=== PATIENT | female | born 1950 | race Two or more races ===

== ENCOUNTER → 2016-12-03 | Outpatient (REF) | payer OTHER, MEDICAID ==
[~2016-12-03] MED LIST: /PANT40TA OR; /PROM25SU IM; /WARF25TA OR; ACET65TA OR; ALBU17IN INH; ALBU83IN INH; ALBUTEROL LIQ; AMIT100TA PO; ATIV1TAB10 PO; CETI5TAB2 OR; COMBVENT INH; EPIP0.3I2 SUBQ; ESTRACE OR; FERR325T OR; FLEXERIL PO; FLON0.054; IMIT6INJ IJ; K-TA10TA2 PO; KLON0.5T OR; LASI20TA OR; LEVO25TA34 PO; LIDO5DIS36 TD; LISI20TA PO; MAXA10TA14 PO; MAXA10TA17 OR; MELO15TA4 PO; METO25TAB PO; OMEP40CA2 PO; OXYC10TA97 OR; PERC5TAB6 PO; PERC5TAB8 OR; POTA20TA2 OR; PROM125TA PO; SING10TA31 OR; SING10TA32 PO; TEMA15CA2 OR; TESS100C PO; TYLE325T5 PO; VALT1TAB PO; VENL100T PO; VICO5TAB OR; VITA500C OR; ZETI10TA2 PO
== END ==
LOC: M SFHCPLAZ 12:11
PROVIDERS: ATTEND Family Medicine
DX: E11.9 Type 2 diabetes mellitus without complications (principal)
CPT/HCPCS: 36415; 82043; 83036; G0463

== ENCOUNTER → 2016-12-17 | Outpatient (CLI) | payer OTHER | END | disposition home or self-care (01) | LOC: M HL 12:40 | PROVIDERS: ATTEND Family Medicine ==

== ENCOUNTER → 2017-01-01 | Outpatient (REF) | payer OTHER, MEDICAID ==
[~2017-01-01] MED LIST changes: +ASPI1TAB PO; +FISH1000 PO; +GABA300C3 PO; +METF750T PO; +PHEN2SUP PO; +RANI15TA PO
[2017-01-01 13:29] LABS: ALBUMIN 3.6 GM/DL (3.2-5.2); ALKALINE PHOSPHATASE 122 U/L (45-117); ALT/SGPT 36 U/L (12-78); ANION GAP 8 MEQ/L (8-16); AST/SGOT 20 U/L (15-37); BILIRUBIN,TOTAL 0.2 MG/DL (0.2-1.0); BLOOD UREA NITROGEN 21 MG/DL (7-18); CALCIUM LEVEL 9.3 MG/DL (8.8-10.2); CARBON DIOXIDE LEVEL 32 MEQ/L (21-32); CHLORIDE LEVEL 102 MEQ/L (98-107); GLOMERULAR FILTRATION RATE > 60.0 (>45); GLUCOSE, FASTING 103 MG/DL (80-110); POTASSIUM SERUM 4.7 MEQ/L (3.5-5.1); SODIUM LEVEL 142 MEQ/L (136-145); TOTAL PROTEIN 6.6 GM/DL (6.4-8.2)
== END ==
LOC: M SFHCPLAZ 11:21
PROVIDERS: ATTEND Nurse Practitioner Family
DX: E11.9 Type 2 diabetes mellitus without complications (principal)
CPT/HCPCS: 80053; G0463

== ENCOUNTER → 2017-01-11 | Outpatient (CLI) | payer OTHER ==
[~2017-01-11] VITALS: Ht 162.6 cm; Wt 98.9 kg
[~2017-01-11] MED LIST changes: +LIDOCAINE 2% INJ 100 MG/5 ML SDV (FOR ANES.) As Ordered ONE; +NS 1,000 ML IV SCH; +PROPOFOL 200 MG/20 ML VIAL As Ordered ONE
--- NOTE | 2017-01-11 10:29 | ROOR ---
Patient Name: Jessica Ponce Procedure Date: 01/11/2017 9:54 AM Date of : 1950 Age: 66 Room: [facility] Gender: Female Note Status: Finalized Procedure: Colonoscopy Indications: High risk colon cancer surveillance: Personal history of colonic polyps, Last colonoscopy: July 2013, Incidental diarrhea noted Providers: Memo SHARMA MD Referring MD: THELMA CARROLL MD Requesting Provider: Medicines: Monitored Anesthesia Care Complications: No immediate complications. Procedure: Pre-Anesthesia Assessment: - The heart rate, respiratory rate, oxygen saturations, blood pressure, adequacy of pulmonary ventilation, and response to care were monitored throughout the procedure. The Colonoscope was introduced through the anus and advanced to the cecum, identified by appendiceal orifice and ileocecal valve. The colonoscopy was performed without difficulty. The patient tolerated the procedure well. The quality of the bowel preparation was good. Findings: The perianal and digital rectal examinations were normal. Internal hemorrhoids were found during retroflexion. The hemorrhoids were medium-sized. Four flat polyps were found in the sigmoid colon. The polyps were 3 to 5 mm in size. These polyps were removed with a cold snare. Resection and retrieval were complete. The ileocecal valve was moderately lipomatous. This was biopsied with a cold forceps for histology. The exam was otherwise without abnormality on direct and retroflexion views. Biopsies for histology were taken with a cold forceps for evaluation of microscopic colitis. Impression: - Internal hemorrhoids. - Four 3 to 5 mm polyps in the sigmoid colon, removed with a cold snare. Resected and retrieved. - Lipomatous ileocecal valve. Biopsied. - The examination was otherwise normal on direct and retroflexion views. - Biopsies were taken with a cold forceps for evaluation of microscopic colitis. Recommendation: - Await pathology results. - Telephone endoscopist for pathology results in 2 weeks. - If the pathology report reveals adenomatous tissue, then repeat the colonoscopy for surveillance in 3 years. - If the pathology report indicates hyperplastic polyp, then repeat colonoscopy for surveillance in 5 years. Memo Sharma MD Memo SHARMA MD 01/11/2017 10:28:43 AM This report has been signed electronically. Number of Addenda: 0 Note Initiated On: 01/11/2017 9:54 AM Estimated Blood Loss: Estimated blood loss: none. Estimated blood loss: none.
[2017-01-11 10:46] VITALS: BP 126/71
== END ==
LOC: M OPP 08:05
PROVIDERS: ATTEND Internal Medicine Gastroenterology
DX: Z12.11 Encounter for screening for malignant neoplasm of colon (principal); Z86.010 Personal history of colon polyps; K64.8 Other hemorrhoids; D12.5 Benign neoplasm of sigmoid colon; K63.89 Other specified diseases of intestine; I10 Essential (primary) hypertension; E11.9 Type 2 diabetes mellitus without complications; K21.9 Gastro-esophageal reflux disease without esophagitis; M19.90 Unspecified osteoarthritis, unspecified site; G43.909 Migraine, unspecified, not intractable, without status migrainosus; R63.4 Abnormal weight loss; M48.00 Spinal stenosis, site unspecified; R00.0 Tachycardia, unspecified; E78.00 Pure hypercholesterolemia, unspecified; F41.9 Anxiety disorder, unspecified; F32.9 Major depressive disorder, single episode, unspecified; G62.9 Polyneuropathy, unspecified; R06.83 Snoring; R32 Unspecified urinary incontinence; Z79.82 Long term (current) use of aspirin; Z79.84 Long term (current) use of oral hypoglycemic drugs; Z79.899 Other long term (current) drug therapy; Z88.5 Allergy status to narcotic agent; Z88.6 Allergy status to analgesic agent; Z88.0 Allergy status to penicillin; Z88.8 Allergy status to other drugs, medicaments and biological substances; Z91.030 Bee allergy status

== ENCOUNTER → 2017-02-06 | Outpatient (REF) | payer OTHER, MEDICAID ==
[~2017-02-06] MED LIST changes: -LIDOCAINE 2% INJ 100 MG/5 ML SDV (FOR ANES.) As Ordered ONE; -NS 1,000 ML IV SCH; -PROPOFOL 200 MG/20 ML VIAL As Ordered ONE
== END ==
LOC: M SFHCPLAZ 13:42
PROVIDERS: ATTEND Nurse Practitioner Family
DX: E11.9 Type 2 diabetes mellitus without complications (principal); E78.2 Mixed hyperlipidemia; Z53.8 Procedure and treatment not carried out for other reasons

== ENCOUNTER → 2017-02-07 | Outpatient (REF) | payer OTHER, MEDICAID ==
[2017-02-07 12:35] LABS: ALBUMIN 3.5 GM/DL (3.2-5.2); ALBUMIN/GLOBULIN RATIO 1.03 (1.00-1.93); ALKALINE PHOSPHATASE 130 U/L (45-117); ALT/SGPT 36 U/L (12-78); ANION GAP 6 MEQ/L (8-16); AST/SGOT 20 U/L (15-37); BILIRUBIN,TOTAL 0.3 MG/DL (0.2-1.0); BLOOD UREA NITROGEN 15 MG/DL (7-18); CALCIUM LEVEL 9.3 MG/DL (8.8-10.2); CARBON DIOXIDE LEVEL 33 MEQ/L (21-32); CHLORIDE LEVEL 101 MEQ/L (98-107); CHOLESTEROL LEVEL 197 MG/DL (<200); CREATININE FOR GFR 0.67 MG/DL (0.55-1.02); GLOMERULAR FILTRATION RATE > 60.0 (>45); GLUCOSE, FASTING 96 MG/DL (80-110); POTASSIUM SERUM 4.4 MEQ/L (3.5-5.1); SODIUM LEVEL 140 MEQ/L (136-145); TOTAL PROTEIN 6.9 GM/DL (6.4-8.2); TRIGLYCERIDES LEVEL 173 MG/DL (<150)
== END ==
LOC: M SFHCPLAZ 10:23
PROVIDERS: ATTEND Nurse Practitioner Family
DX: E11.9 Type 2 diabetes mellitus without complications (principal); E78.2 Mixed hyperlipidemia

== ENCOUNTER 2017-02-25 07:22 | Day surgery (SDC) | payer OTHER, MEDICAID ==
[~2017-02-25] VITALS: Ht 157.5 cm; Wt 95.3 kg
[~2017-02-25 07:22] MED LIST changes: +CALCTAB75 PO; +EPINEPHrine 1MG/ML INJ 30ML MD-VIAL As Ordered ONE; +EPINEPHrine INJ 1 MG/ML 1ML VIAL/AMP As Ordered ONE; +FLON27.5; +GABA-282 PO; -GABA300C3 PO; +METO37.5 PO; +PROC25SU24 PO; +ROBA750T4 PO
[2017-02-25] MEDS ORDERED: LIDOCAINE 1% MDV 20ML VIAL ONE (07:23)
[2017-02-25] MEDS ORDERED: ROPIvacaine 0.5% 30 ML INJECTION (J2795) ONE (07:23)
[2017-02-25] MEDS ORDERED: LR 1,000 ML IV SCH ×2 (07:30→13:15)
[2017-02-25] MEDS ORDERED: VANCOMYCIN HCL 1,000 MG, VIAL MATE ADAPTER 1 EACH in D5W 250 ML IV ONE (07:30)
[2017-02-25] MEDS ORDERED: fentaNYL 100 MCG/2 ML INJECTION (J3010) As Ordered ONE (08:56)
[2017-02-25] MEDS ORDERED: MIDAZOLAM INJ 2 MG/2 ML VIAL (J2250) As Ordered ONE ×2 (08:56→11:48)
[2017-02-25] MEDS ORDERED: MIDAZOLAM INJ 2 MG/2 ML VIAL (J2250) IV ONE (10:00)
[2017-02-25] MEDS ORDERED: fentaNYL 100 MCG/2 ML INJECTION (J3010) IV ONE (10:00)
[2017-02-25] MEDS ORDERED: dexameTHASONE 4 MG/ML 1ML VIAL (J1100) As Ordered ONE (11:15)
[2017-02-25] MEDS ORDERED: LIDOCAINE 2% INJ 100 MG/5 ML SDV (FOR ANES.) As Ordered ONE (11:15)
[2017-02-25] MEDS ORDERED: ROCURONIUM BROMIDE 50 MG/5 ML VIAL As Ordered ONE (11:15)
[2017-02-25] MEDS ORDERED: PROPOFOL 200 MG/20 ML VIAL As Ordered ONE (11:15)
[2017-02-25] MEDS ORDERED: ONDANSETRON 4MG/2ML VIAL (J2405) As Ordered ONE (11:15)
[2017-02-25] MEDS ORDERED: CALCIUM CHLORIDE 10% 1 GM/10 ML SYR As Ordered ONE (11:15)
[2017-02-25] MEDS ORDERED: ePHEDrine SULFATE 25 MG/5 ML(5MG/ML) SYRINGE As Ordered ONE (11:16)
[2017-02-25] MEDS ORDERED: PHENYLEPHRINE INJ 10MG/ML VIAL (J2370) As Ordered ONE (11:16)
[2017-02-25] MEDS ORDERED: PHENYLephrine HCL 500 MCG/5 ML (100MCG/ML) SYRINGE (J2370) As Ordered ONE (11:16)
[2017-02-25] MEDS ORDERED: fentaNYL 250 MCG/5 ML INJECTION (J3010) As Ordered ONE (11:48)
[2017-02-25] MEDS ORDERED: PERCOCET 5MG/325MG TAB PO PRN ×2 (13:15)
[2017-02-25] MEDS ORDERED: ONDANSETRON 4MG/2ML VIAL (J2405) IV PRN (13:15)
[2017-02-25] MEDS ORDERED: fentaNYL 100 MCG/2 ML INJECTION (J3010) IV PRN (13:15)
[2017-02-25] MEDS ORDERED: MORPHINE 4 MG/ML 1ML SYRINGE IV PRN (13:15)
[2017-02-25] MEDS ORDERED: HYDROmorphone HCL 1 MG/ML SYRINGE (J1170) IV PRN (13:15)
[2017-02-25] MEDS: LR 1,000 ML IV SCH (13:15)
[2017-02-25] MEDS: PROCHLORPERAZINE 5 MG TAB (S0183) PO SCH ×2 (16:00→19:40)
[2017-02-25] MEDS ORDERED: ALBUTEROL 90 MCG/ACT 8GM HFA INHALER INH PRN (16:45)
[2017-02-25 17:15] VITALS: BP 133/82
[2017-02-25] MEDS: HumaLOG INSULIN (NovoLOG) PER UNIT SC SCH (17:30)
[2017-02-25 17:45] VITALS: BP 134/73
[2017-02-25 18:45] VITALS: BP 134/63
--- NOTE | 2017-02-25 19:05 | RO ---
DATE OF PROCEDURE: 02/25/2017 PREPROCEDURE DIAGNOSES: Left shoulder rotator cuff tear. Biceps tendinitis. Acromioclavicular (AC) joint arthritis. POSTPROCEDURE DIAGNOSES: Left shoulder rotator cuff tear. Biceps tendinitis. AC joint arthritis. OPERATIVE PROCEDURES: 1. Left shoulder arthroscopic rotator cuff repair. 2. Left shoulder arthroscopic biceps tendinotomy. 3. Left shoulder arthroscopic distal clavicle excision. SURGEON: Declan Coker MD DIAGNOSTIC CARDIAC SONOGRAPHER: ANESTHESIA: Left interscalene block with general endotracheal tube anesthetic. COMPLICATIONS: None. FINDINGS: She had a large full thickness supraspinatus rotator cuff tendon tear with marked biceps tendinitis as well as AC joint degenerative changes noted. DESCRIPTION OF PROCEDURE: After antibiotics were given intravenously preoperatively, and a successful left interscalene nerve block and general endotracheal tube anesthetic had been established, she was placed in semi beach chair position and a spiral shoulder soliman was utilized. The left shoulder area was prepped and draped in the usual sterile fashion. After appropriate time-out, routine diagnostic arthroscopy was performed through a posterior portal revealing the findings as noted above. She did have some glenohumeral arthritis, about grade II-III. No full thickness defects were noted. Because of the biceps tendinitis, I did release the biceps tendon with the ablater wand. As soon as I released that, a fairly large supraspinatus rotator cuff tendon tear was noted. The small calcium deposit was seen on the MR scan, also was released after I debated the rotator cuff insertion. I debrided the footprint down to good bleeding bone bed using the shaver and the ablater wand and the ring curette. Once that all had been performed, I did also explore over to the AC joint. You could see quite clearly there is significant eburnation of the distal end of the clavicle consistent with significant degenerative arthritis. I then placed two medial row anchors using a speed fix kit from [employer] and then passed the [employer] up through the rotator cuff after establishing the cannula laterally. These were docked outside the joint and then I grabbed one limb from each medial row anchor placing them into a lateral row anchor and first placed the posterior anchor posteriorly and laterally, making sure there was good firm tension on the [employer]. I used the punch and then inserted the anchor. This provided excellent water tight closure of the cuff at this point and then I grabbed the two remaining sutures and loaded them on the second lateral row more anterior swivel lock. Used the punch and inserted the anchors. Photographs were taken showing a nice water tight closure and repair of the rotator cuff. I then turned my attention to the distal clavicle, made sure that I could access the joint directly anteriorly then used the ablater wand and the four-hole bur to form a formal distal clavicle excision, photographing before and after. Finding no other arthroscopic treatable pathology, a copiously irrigated out the subacromial space, closed the arthroscopy portals with interrupted nylon sutures, placed her in an abduction pillow brace and then she was awakened from general endotracheal anesthesia after having tolerated the procedure well and transferred to the recovery room in sterile condition. There were no intraoperative complications.
[2017-02-25 19:45] VITALS: BP 131/78
[2017-02-25 20:45] VITALS: BP 131/60
[2017-02-25] MEDS ORDERED: HumaLOG INSULIN (NovoLOG) PER UNIT SC SCH (21:00)
[2017-02-25] MEDS ORDERED: AMITRIPTYLINE 50 MG TAB PO SCH (21:00)
[2017-02-26] MEDS: LR 1,000 ML IV SCH (00:48)
[2017-02-26 02:00] VITALS: BP 143/66
[2017-02-26 06:00] VITALS: BP 118/59
[2017-02-26] MEDS: HumaLOG INSULIN (NovoLOG) PER UNIT SC SCH (07:30)
[2017-02-26] MEDS: PROCHLORPERAZINE 5 MG TAB (S0183) PO SCH (09:00)
== END 2017-02-26 11:30 | disposition home or self-care (01) ==
LOC: M SDC 07:22 → M MS5PR 16:35 → M SDC 02-26 11:30
PROVIDERS: ATTEND Orthopaedic Surgery
DX: M75.102 Unspecified rotator cuff tear or rupture of left shoulder, not specified as traumatic (principal); M75.22 Bicipital tendinitis, left shoulder; M19.012 Primary osteoarthritis, left shoulder; I10 Essential (primary) hypertension; E11.9 Type 2 diabetes mellitus without complications; J45.909 Unspecified asthma, uncomplicated; G47.30 Sleep apnea, unspecified; K21.9 Gastro-esophageal reflux disease without esophagitis; E78.5 Hyperlipidemia, unspecified; F41.9 Anxiety disorder, unspecified; F32.9 Major depressive disorder, single episode, unspecified; M48.00 Spinal stenosis, site unspecified; R32 Unspecified urinary incontinence; Z91.030 Bee allergy status; Z91.038 Other insect allergy status; Z88.0 Allergy status to penicillin; Z88.8 Allergy status to other drugs, medicaments and biological substances; Z88.1 Allergy status to other antibiotic agents; Z88.5 Allergy status to narcotic agent; Z79.899 Other long term (current) drug therapy; Z79.84 Long term (current) use of oral hypoglycemic drugs; Z79.51 Long term (current) use of inhaled steroids; Z87.891 Personal history of nicotine dependence
CPT/HCPCS: 29824; 29827; 29828; 64415; A4649; J1100; J2250; J2370; J2405; J2795; J3010; J3370

== ENCOUNTER → 2017-04-10 | Outpatient (RCR) | payer OTHER, MEDICAID ==
[~2017-04-10] MED LIST changes: -EPINEPHrine 1MG/ML INJ 30ML MD-VIAL As Ordered ONE; -EPINEPHrine INJ 1 MG/ML 1ML VIAL/AMP As Ordered ONE
== END ==
LOC: M PT 03-21 12:50
PROVIDERS: ATTEND Orthopaedic Surgery
DX: Z51.89 Encounter for other specified aftercare (principal); Z47.89 Encounter for other orthopedic aftercare; M75.22 Bicipital tendinitis, left shoulder
CPT/HCPCS: 97035; 97110; 97140; 97161; G8984; G8985

== ENCOUNTER → 2017-05-02 | Outpatient (CLI) | payer OTHER, MEDICAID ==
--- NOTE | 2017-05-02 14:02 | REPMRS ---
Patient History The patient states she had a clinical breast exam in 04/27 Patient is postmenopausal and has history of endometrial cancer at age 26. Family history of prostate cancer in father at age 50 or over. Took estrogen for 2 months. Digital Woman Screen Mammo: May 02, 2017 - Exam #: [id number] Bilateral CC and MLO view(s) were taken. Technologist: Luanne Bess, Technologist Prior study comparison: May 25, 2014, digital mammo diagnostic bilateral, performed at [facility]. March 10, 2013, bilateral digital mammo screening bilat, performed at [facility]. FINDINGS: There are scattered fibroglandular densities. There has been no change in the appearance of the mammogram from the prior studies. There is a mild amount of residual fibroglandular tissue which is fairly symmetric. There is no interval development of dominant mass, architectural distortion, or clustered microcalcification suggestive of malignancy. ASSESSMENT: BI-RADS/ACR category 1 mammogram. Negative. Recommendation Routine screening mammogram in 1 year (for women over age 40). This mammogram was interpreted with the aid of an FDA-approved computer-aided dectection system. Electronically Signed By: Frank Lopez MD 05/02/17 [id number]
== END ==
LOC: M WHC 10:50
PROVIDERS: ATTEND Family Medicine
DX: Z12.31 Encounter for screening mammogram for malignant neoplasm of breast (principal); Z78.0 Asymptomatic menopausal state; Z92.23 Personal history of estrogen therapy; Z80.42 Family history of malignant neoplasm of prostate; Z85.44 Personal history of malignant neoplasm of other female genital organs

== ENCOUNTER → 2017-05-10 | Outpatient (RCR) | payer OTHER, MEDICAID ==
[~2017-05-10] MED LIST changes: +ADVA115A INH; +HYDR-3363 PO; +LASI20TA PO; -LIDO5DIS36 TD; +LIDO5DIS41 TD; +MUCI600T37 PO; +NYST1POW9 TOP; +OXYC1TAB23 PO; +PERC5TAB12 PO; -PERC5TAB6 PO; +PROM12.55 PO; -PROM125TA PO; -ZETI10TA2 PO; +ZETI10TA30 PO
== END ==
LOC: M PT 04-11 12:26
PROVIDERS: ATTEND Orthopaedic Surgery
DX: Z51.89 Encounter for other specified aftercare (principal); M75.22 Bicipital tendinitis, left shoulder; Z47.89 Encounter for other orthopedic aftercare
CPT/HCPCS: 97035; 97110; 97140; G8984; G8985

== ENCOUNTER 2017-05-15 11:33 | Outpatient (RCR) | payer OTHER, MEDICAID ==
[~2017-05-15 11:33] MED LIST changes: -ADVA115A INH; -HYDR-3363 PO; -LASI20TA PO; -MUCI600T37 PO; -NYST1POW9 TOP; -OXYC1TAB23 PO
== END 2017-06-10 | disposition home or self-care (01) ==
LOC: M PT 11:33
PROVIDERS: ATTEND Orthopaedic Surgery
DX: Z51.89 Encounter for other specified aftercare (principal); Z47.89 Encounter for other orthopedic aftercare; M75.22 Bicipital tendinitis, left shoulder

== ENCOUNTER → 2017-07-22 | Outpatient (REF) | payer OTHER, MEDICAID ==
[~2017-07-22] MED LIST changes: +ADVA115A INH; +HYDR-3363 PO; +LASI20TA PO; +MUCI600T37 PO; +NYST1POW9 TOP; +OXYC1TAB23 PO
== END ==
LOC: M SFHCPLAZ 13:01
PROVIDERS: ATTEND Family Medicine
DX: E11.9 Type 2 diabetes mellitus without complications (principal)
CPT/HCPCS: 36415; 83036; G0463

== ENCOUNTER 2017-07-23 13:49 | Emergency (ER) | payer OTHER, MEDICAID ==
[~2017-07-23] VITALS: Ht 160 cm; Wt 92.7 kg
[~2017-07-23 13:49] MED LIST changes: -ADVA115A INH; -HYDR-3363 PO; -LASI20TA PO; -MUCI600T37 PO; -NYST1POW9 TOP; -OXYC1TAB23 PO
[2017-07-23] MEDS ORDERED: HYDR-3363 PO (14:15)
[2017-07-23] MEDS ORDERED: ZETI10TA30 PO (14:15)
[2017-07-23] MEDS ORDERED: MUCI600T37 PO (14:15)
[2017-07-23] MEDS ORDERED: NYST1POW9 TOP (14:15)
[2017-07-23] MEDS ORDERED: ADVA115A INH (14:15)
[2017-07-23] MEDS ORDERED: LASI20TA PO (14:15)
[2017-07-23] MEDS ORDERED: OXYC1TAB23 PO (14:15)
[2017-07-23] MEDS ORDERED: LIDOCAINE W/EPINEPHRINE 1% 20ML VIAL SC ONE (15:15)
--- NOTE | 2017-07-23 16:21 | REP ---
Clinical: Laceration. Comparison: 09/01/2010. Technique: AP, lateral, bilateral oblique and sunrise views. Findings: The patient is status post total knee replacement. Diffuse soft tissue swelling and prepatellar laceration is appreciated. No acute fracture or dislocation. No obvious foreign body. Impression: Soft tissue swelling and laceration. No acute fracture or foreign body. Signed by Yordan Barrera MD 07/23/2017 04:13 P
[2017-07-23 16:53] VITALS: BP 140/71
== END 2017-07-23 17:01 | disposition home or self-care (01) ==
LOC: M ED 13:49 → EDBD 13:49 → M ED 17:01
DX: S81.011A Laceration without foreign body, right knee, initial encounter (principal); W01.0XXA Fall on same level from slipping, tripping and stumbling without subsequent striking against object, initial encounter; Y92.009 Unspecified place in unspecified non-institutional (private) residence as the place of occurrence of the external cause; Y93.89 Activity, other specified; Y99.8 Other external cause status; E66.9 Obesity, unspecified; F43.10 Post-traumatic stress disorder, unspecified; F41.9 Anxiety disorder, unspecified; F32.9 Major depressive disorder, single episode, unspecified; Z87.891 Personal history of nicotine dependence; Z85.42 Personal history of malignant neoplasm of other parts of uterus; Z88.8 Allergy status to other drugs, medicaments and biological substances; Z88.5 Allergy status to narcotic agent; Z88.1 Allergy status to other antibiotic agents; Z88.0 Allergy status to penicillin; Z91.030 Bee allergy status; Z79.899 Other long term (current) drug therapy; Z79.82 Long term (current) use of aspirin; Z79.51 Long term (current) use of inhaled steroids

== ENCOUNTER → 2017-08-07 | Outpatient (CLI) | payer OTHER, MEDICAID ==
[~2017-08-07] MED LIST changes: +ADVA115A INH; +HYDR-3363 PO; +LASI20TA PO; +MUCI600T37 PO; +NYST1POW9 TOP; +OXYC1TAB23 PO
== END ==
LOC: M PT 13:58
PROVIDERS: ATTEND Family Medicine
DX: M17.10 Unilateral primary osteoarthritis, unspecified knee (principal)
CPT/HCPCS: 97162; G8978; G8979; G8980

== ENCOUNTER → 2017-09-05 | Outpatient (REF) | payer OTHER, MEDICAID ==
[2017-09-05 18:13] LABS: TOTAL PROTEIN 6.8 GM/DL (6.4-8.2)
[2017-09-05 18:15] LABS: VITAMIN B12 LEVEL 482 PG/ML
[2017-09-05 18:16] LABS: FOLATE 6.6 NG/ML
[2017-09-09 10:58] LABS: ALBUMIN 3.94 GM/DL (3.29-5.55); GAMMA GLOBULIN % 13.5 % (11.1-18.8)
[2017-09-11 14:16] LABS: VITAMIN E LEVEL 10.8 mg/L (6.5-21.5)
== END ==
LOC: M LABNEURO 15:45
PROVIDERS: ATTEND Psychiatry & Neurology Neurology
DX: G62.9 Polyneuropathy, unspecified (principal); E53.8 Deficiency of other specified B group vitamins; E51.9 Thiamine deficiency, unspecified

== ENCOUNTER → 2017-10-25 | Outpatient (REF) | payer OTHER, MEDICAID | LOC: M LABDRAW1 11:41 | PROVIDERS: ATTEND Psychiatry & Neurology Neurology | DX: G62.9 Polyneuropathy, unspecified (principal) ==

== ENCOUNTER → 2017-11-12 | Outpatient (CLI) | payer OTHER, MEDICAID ==
[2017-11-12 12:19] LABS: HEMATOCRIT 46.3 % (36.0-47.0); HEMOGLOBIN 15.3 g/dl (12.0-16.0); MEAN CORPUSCULAR HEMOGLOBIN 31.4 pg (27.0-33.0); MEAN CORPUSCULAR VOLUME 95.1 fl (80.0-96.0); PLATELET COUNT, AUTOMATED 282 10^3/uL (150-450); RED BLOOD COUNT 4.87 10^6/uL (4.00-5.40); WHITE BLOOD COUNT 11.5 10^3/uL (4.0-10.0)
[2017-11-12 12:27] LABS: INR 0.99; PROTHROMBIN TIME 13.2 SECONDS (12.4-14.5)
[2017-11-12 13:14] LABS: ALBUMIN 3.7 GM/DL (3.2-5.2); ALBUMIN/GLOBULIN RATIO 1.09 (1.00-1.93); ALKALINE PHOSPHATASE 120 U/L (45-117); ALT/SGPT 40 U/L (12-78); ANION GAP 7 MEQ/L (8-16); AST/SGOT 23 U/L (7-37); BILIRUBIN,TOTAL 0.2 MG/DL (0.2-1.0); BLOOD UREA NITROGEN 21 MG/DL (7-18); CARBON DIOXIDE LEVEL 31 MEQ/L (21-32); CHLORIDE LEVEL 103 MEQ/L (98-107); CREATININE FOR GFR 0.85 MG/DL (0.55-1.02); GLOMERULAR FILTRATION RATE > 60.0 (>45); GLUCOSE, FASTING 111 MG/DL (80-110); POTASSIUM SERUM 4.2 MEQ/L (3.5-5.1); SODIUM LEVEL 141 MEQ/L (136-145); TOTAL PROTEIN 7.1 GM/DL (6.4-8.2)
[2017-11-12 17:16] LABS: ERYTHROCYTE SEDIMENTATION RATE 11 mm/hr (0-30)
== END ==
LOC: M ADMPAT 10:13
DX: M17.12 Unilateral primary osteoarthritis, left knee (principal); I45.10 Unspecified right bundle-branch block
CPT/HCPCS: 71046

== ENCOUNTER → 2017-11-14 | Outpatient (REF) | payer OTHER, MEDICAID ==
[2017-11-14 11:37] LABS: AMORPHOUS SEDIMENT SMALL (NEGATIVE); APPEARANCE, URINE CLOUDY (CLEAR); BACTERIA, URINE AUTO 1+ (NEGATIVE); BILIRUBIN, URINE AUTO NEGATIVE (NEGATIVE); BLOOD, URINE BLOOD 1+ (NEGATIVE); COLOR, URINE YELLOW (YELLOW); GLUCOSE, URINE (UA) AUTO NEGATIVE (NEGATIVE); KETONE, URINE AUTO NEGATIVE (NEGATIVE); LEUKOCYTE ESTERASE, URINE AUTO 3+ (NEGATIVE); MUCUS, URINE SMALL (NEGATIVE); NITRITE, URINE AUTO NEGATIVE (NEGATIVE); PROTEIN, URINE AUTO NEGATIVE (NEGATIVE); RBC, URINE AUTO 6 /HPF (0-3); SPECIFIC GRAVITY URINE AUTO 1.024 (1.002-1.035); SQUAMOUS EPITHELIAL CELL UR AU 6 /HPF (0-6); TRANSITIONAL EPITHELIAL AUTO 1 /HPF; UROBILINOGEN, URINE AUTO 0.2 mg/dL (0.0-2.0); WBC, URINE AUTO 41 /HPF (0-3)
== END ==
LOC: M LAB REF 11:13
DX: M17.12 Unilateral primary osteoarthritis, left knee (principal)
CPT/HCPCS: 81001

== ENCOUNTER → 2017-11-20 | Outpatient (REF) | payer OTHER, MEDICAID | LOC: M LABDRAW1 15:29 | DX: M17.12 Unilateral primary osteoarthritis, left knee (principal); Z79.899 Other long term (current) drug therapy | CPT/HCPCS: 87086 ==

== ENCOUNTER 2017-11-25 10:09 | Inpatient (IN) | payer OTHER, MEDICAID ==
[2017-11-25 11:04] LABS: GLUCOSE, FASTING 120 MG/DL (80-110)
[2017-11-25] MEDS: LR 1,000 ML IV ×3 (11:29→18:04)
[2017-11-25] MEDS: ACETAMINOPHEN 500 MG TAB PO (11:29)
[2017-11-25] MEDS: VANCOMYCIN HCL 1,000 MG, VIAL MATE ADAPTER 1 EACH in D5W 250 ML IV (11:45)
[2017-11-25] MEDS ORDERED: fentaNYL 100 MCG/2 ML INJECTION (J3010) As Ordered ×2 (12:04→12:35)
[2017-11-25] MEDS ORDERED: MIDAZOLAM INJ 2 MG/2 ML VIAL (J2250) As Ordered ×3 (12:04→13:51)
[2017-11-25] MEDS ORDERED: PROPOFOL 200 MG/20 ML VIAL As Ordered (12:35)
[2017-11-25] MEDS: BUPIVACAINE HCL 0.25% 10 ML VIAL As Ordered (12:41)
[2017-11-25] MEDS ORDERED: fentaNYL 100 MCG/2 ML INJECTION (J3010) IV ×2 (12:45→16:00)
[2017-11-25] MEDS ORDERED: MIDAZOLAM INJ 2 MG/2 ML VIAL (J2250) IV (12:45)
[2017-11-25] MEDS: CLINDAMYCIN INJ 900MG/6ML VIAL As Ordered (14:35)
[2017-11-25] MEDS: EPINEPHrine INJ 1 MG/ML 1ML AMP As Ordered (14:36)
[2017-11-25] MEDS: TRANEXAMIC ACID 100 MG/ML 10ML VIAL As Ordered (14:36)
[2017-11-25] MEDS: BUPIVACAINE LIPOSOME/PF 1.3% 20 ML VIAL (13.3MG/ML)(EXPAREL) As Ordered (14:59)
[2017-11-25] MEDS ORDERED: MORPHINE 1MG/ML IN 0.9% NACL 100ML IV BAG As Ordered (15:42)
[2017-11-25] MEDS: MORPHINE 1MG/ML IN 0.9% NACL 100ML IV BAG IV (15:55)
[2017-11-25] MEDS ORDERED: PERCOCET 5MG/325MG TAB PO (16:00)
[2017-11-25] MEDS ORDERED: ONDANSETRON 4MG/2ML VIAL (J2405) IV ×2 (16:00)
[2017-11-25] MEDS ORDERED: EPIDURAL/PCA KEYS XX (16:00)
[2017-11-25] MEDS ORDERED: HYDROmorphone HCL 1 MG/ML SYRINGE (J1170) IV (16:00)
[2017-11-25] MEDS ORDERED: ACETAMINOPHEN TAB 650MG DOSE (2X325MG) PO (16:00)
[2017-11-25] MEDS ORDERED: diphenhydrAMINE INJ 50MG/ML VIAL (J1200) IV (16:00)
[2017-11-25] MEDS ORDERED: FLEET ENEMA PR (16:00)
[2017-11-25] MEDS ORDERED: NALOXONE INJ 0.4 MG/1 ML VIAL (J2310) IV (16:00)
[2017-11-25] MEDS ORDERED: GLUCAGON FOR INJ 1 MG VIAL (J1610) SC (17:45)
[2017-11-25] MEDS ORDERED: DEXTROSE 50% 50 ML SYRINGE IV (17:45)
[2017-11-25] MEDS ORDERED: GLUCOSE 4 GM CHEW TABLET PO (17:45)
[2017-11-25] MEDS ORDERED: ALBUTEROL SULFATE 2.5 MG/0.5 ML INH NEB SOLN INH (17:45)
[2017-11-25] MEDS: WARFARIN SOD 5 MG TAB PO (18:03)
[2017-11-25 20:56] LABS: BEDSIDE GLUCOSE 317 MG/DL (80-115)
[2017-11-25] MEDS: HumaLOG INSULIN (NovoLOG) PER UNIT SC ×2 (21:00→21:05)
[2017-11-25] MEDS: GABAPENTIN 300 MG CAP PO (21:06)
[2017-11-25] MEDS: VENLAFAXINE 25 MG TAB PO (21:06)
[2017-11-25] MEDS: AMITRIPTYLINE 50 MG TAB PO (22:13)
[2017-11-26] MEDS: VANCOMYCIN HCL 1,000 MG, VIAL MATE ADAPTER 1 EACH in D5W 250 ML IV (00:03)
[2017-11-26] MEDS: NALBUPHINE HCL 10 MG/ML AMP (J2300) IV (05:03)
[2017-11-26] MEDS: LR 1,000 ML IV (05:09)
[2017-11-26] MEDS ORDERED: traMADol 50 MG TAB PO (06:45)
[2017-11-26] MEDS ORDERED: ONDANSETRON 4 MG TAB (S0181) PO (06:45)
[2017-11-26] MEDS: HumaLOG INSULIN (NovoLOG) PER UNIT SC (07:30)
[2017-11-26 07:39] LABS: HEMATOCRIT 41.8 % (36.0-47.0); HEMOGLOBIN 13.4 g/dl (12.0-16.0); MEAN CORPUSCULAR HEMOGLOBIN 30.6 pg (27.0-33.0); MEAN CORPUSCULAR HGB CONC 32.1 g/dl (32.0-36.5); MEAN CORPUSCULAR VOLUME 95.4 fl (80.0-96.0); PLATELET COUNT, AUTOMATED 266 10^3/uL (150-450); RED BLOOD COUNT 4.38 10^6/uL (4.00-5.40); RED CELL DISTRIBUTION WIDTH 15.5 % (11.5-14.5); WHITE BLOOD COUNT 20.2 10^3/uL (4.0-10.0)
[2017-11-26 07:47] LABS: INR 0.96; PROTHROMBIN TIME 12.8 SECONDS (12.4-14.5)
[2017-11-26] MEDS: traMADol 50 MG TAB PO ×3 (07:48→20:38)
[2017-11-26 07:58] LABS: ANION GAP 5 MEQ/L (8-16); BLOOD UREA NITROGEN 17 MG/DL (7-18); CALCIUM LEVEL 9.4 MG/DL (8.8-10.2); CARBON DIOXIDE LEVEL 32 MEQ/L (21-32); CHLORIDE LEVEL 101 MEQ/L (98-107); CREATININE FOR GFR 0.65 MG/DL (0.55-1.02); GLOMERULAR FILTRATION RATE > 60.0 (>45); GLUCOSE, FASTING 156 MG/DL (80-110); POTASSIUM SERUM 4.6 MEQ/L (3.5-5.1); SODIUM LEVEL 138 MEQ/L (136-145)
[2017-11-26] MEDS: metFORMIN XR 750 MG TAB PO ×2 (08:00→17:17)
[2017-11-26] MEDS: GABAPENTIN 300 MG CAP PO ×3 (08:51→20:37)
[2017-11-26] MEDS: VENLAFAXINE 25 MG TAB PO ×2 (08:51→20:35)
[2017-11-26] MEDS: METOPROLOL TART 25 MG TABLET PO (08:52)
[2017-11-26] MEDS: SENOKOT S TAB PO ×2 (08:52→20:36)
[2017-11-26] MEDS: MOM 30ML SUSPENSION UDC PO (08:52)
[2017-11-26] MEDS: MIRALAX *UNIT DOSE* 17GM PACKET PO (08:52)
[2017-11-26] MEDS: EZETIMIBE 10 MG TAB (ZETIA) PO ×2 (09:00→20:36)
[2017-11-26 11:57] LABS: BEDSIDE GLUCOSE 188 MG/DL (80-115)
[2017-11-26] MEDS: WARFARIN SOD 5 MG TAB PO (16:45)
[2017-11-26] MEDS: AMITRIPTYLINE 50 MG TAB PO (20:37)
[2017-11-27] MEDS: traMADol 50 MG TAB PO ×3 (03:27→17:20)
[2017-11-27 07:07] LABS: BASO # 0.1 10^3/uL (0.0-0.2); BASO % 0.4 % (0.0-1.0); EOS % 0.1 % (0.0-3.0); HEMATOCRIT 40.5 % (36.0-47.0); HEMOGLOBIN 13.2 g/dl (12.0-16.0); IMMATURE GRANULOCYTE # 0.2 10^3/uL (0-0); LYMPH # 3.8 10^3/uL (1.5-4.5); LYMPH % 19.2 % (24.0-44.0); MEAN CORPUSCULAR HGB CONC 32.6 g/dl (32.0-36.5); MEAN CORPUSCULAR VOLUME 95.1 fl (80.0-96.0); MONO # 1.6 10^3/uL (0.0-0.8); MONO % 8.4 % (0.0-5.0); NEUTROPHILS # 13.9 10^3/uL (1.8-7.7); NEUTROPHILS % 70.9 % (36.0-66.0); PLATELET COUNT, AUTOMATED 232 10^3/uL (150-450); RED BLOOD COUNT 4.26 10^6/uL (4.00-5.40); RED CELL DISTRIBUTION WIDTH 15.7 % (11.5-14.5); WHITE BLOOD COUNT 19.6 10^3/uL (4.0-10.0)
[2017-11-27 07:24] LABS: INR 1.23; PROTHROMBIN TIME 15.7 SECONDS (12.4-14.5)
[2017-11-27 07:32] LABS: ANION GAP 3 MEQ/L (8-16); BLOOD UREA NITROGEN 21 MG/DL (7-18); CALCIUM LEVEL 8.7 MG/DL (8.8-10.2); CARBON DIOXIDE LEVEL 33 MEQ/L (21-32); CHLORIDE LEVEL 101 MEQ/L (98-107); GLOMERULAR FILTRATION RATE > 60.0 (>45); GLUCOSE, FASTING 141 MG/DL (80-110); POTASSIUM SERUM 4.3 MEQ/L (3.5-5.1); SODIUM LEVEL 137 MEQ/L (136-145)
[2017-11-27] MEDS ORDERED: ALBUTEROL 90 MCG/ACT 8GM HFA INHALER INH (08:30)
[2017-11-27] MEDS: MOM 30ML SUSPENSION UDC PO (09:42)
[2017-11-27] MEDS: MIRALAX *UNIT DOSE* 17GM PACKET PO (09:42)
[2017-11-27] MEDS: metFORMIN XR 750 MG TAB PO ×2 (09:43→17:19)
[2017-11-27] MEDS: MONTELUKAST 10 MG TAB PO (09:43)
[2017-11-27] MEDS: GABAPENTIN 300 MG CAP PO ×3 (09:43→20:59)
[2017-11-27] MEDS: SENOKOT S TAB PO ×2 (09:45→20:59)
[2017-11-27] MEDS: VENLAFAXINE 25 MG TAB PO ×2 (09:45→20:59)
[2017-11-27] MEDS: METOPROLOL TART 25 MG TABLET PO (09:45)
[2017-11-27] MEDS: ADVAIR HFA 115/21MCG INHALER INH ×2 (10:36→21:23)
[2017-11-27] MEDS ORDERED: LIDOCAINE 1% MDV 20ML VIAL (10:53)
[2017-11-27] MEDS ORDERED: dexameTHASONE 10 MG/1 ML VIAL PRES.FREE (J1100) (10:53)
[2017-11-27] MEDS ORDERED: ROPIvacaine 0.5% 30 ML INJECTION (J2795 PER 1MG) (10:53)
[2017-11-27] MEDS: WARFARIN SOD 7.5 MG TAB PO (17:19)
[2017-11-27] MEDS: EZETIMIBE 10 MG TAB (ZETIA) PO (20:59)
[2017-11-27] MEDS: AMITRIPTYLINE 50 MG TAB PO (20:59)
[2017-11-28] MEDS: traMADol 50 MG TAB PO (03:38)
[2017-11-28 06:59] LABS: BASO # 0.1 10^3/uL (0.0-0.2); BASO % 0.5 % (0.0-1.0); EOS # 0.2 10^3/uL (0.0-0.50); EOS % 1.3 % (0.0-3.0); HEMATOCRIT 38.7 % (36.0-47.0); HEMOGLOBIN 12.8 g/dl (12.0-16.0); IMMATURE GRANULOCYTE # 0.2 10^3/uL (0-0); IMMATURE GRANULOCYTE % 1.5 % (0-0); LYMPH # 4.2 10^3/uL (1.5-4.5); MEAN CORPUSCULAR HEMOGLOBIN 31.5 pg (27.0-33.0); MEAN CORPUSCULAR HGB CONC 33.1 g/dl (32.0-36.5); MEAN CORPUSCULAR VOLUME 95.3 fl (80.0-96.0); MONO # 1.2 10^3/uL (0.0-0.8); MONO % 8.2 % (0.0-5.0); NEUTROPHILS # 9.1 10^3/uL (1.8-7.7); NEUTROPHILS % 60.5 % (36.0-66.0); PLATELET COUNT, AUTOMATED 212 10^3/uL (150-450); RED BLOOD COUNT 4.06 10^6/uL (4.00-5.40); RED CELL DISTRIBUTION WIDTH 15.7 % (11.5-14.5); WHITE BLOOD COUNT 15.1 10^3/uL (4.0-10.0)
[2017-11-28 07:15] LABS: INR 1.44; PROTHROMBIN TIME 17.9 SECONDS (12.4-14.5)
[2017-11-28 07:22] LABS: ANION GAP 5 MEQ/L (8-16); BLOOD UREA NITROGEN 20 MG/DL (7-18); CALCIUM LEVEL 8.8 MG/DL (8.8-10.2); CARBON DIOXIDE LEVEL 34 MEQ/L (21-32); CHLORIDE LEVEL 100 MEQ/L (98-107); CREATININE FOR GFR 0.74 MG/DL (0.55-1.02); GLOMERULAR FILTRATION RATE > 60.0 (>45); GLUCOSE, FASTING 118 MG/DL (80-110); POTASSIUM SERUM 4.5 MEQ/L (3.5-5.1); SODIUM LEVEL 139 MEQ/L (136-145)
[2017-11-28] MEDS: GABAPENTIN 300 MG CAP PO (08:32)
[2017-11-28] MEDS: metFORMIN XR 750 MG TAB PO (08:32)
[2017-11-28] MEDS: MONTELUKAST 10 MG TAB PO (08:32)
[2017-11-28] MEDS: VENLAFAXINE 25 MG TAB PO (08:32)
[2017-11-28] MEDS: SENOKOT S TAB PO (08:34)
[2017-11-28] MEDS: MOM 30ML SUSPENSION UDC PO (08:34)
[2017-11-28] MEDS: MIRALAX *UNIT DOSE* 17GM PACKET PO (08:34)
[2017-11-28] MEDS: METOPROLOL TART 25 MG TABLET PO (08:34)
[2017-11-28] MEDS: ADVAIR HFA 115/21MCG INHALER INH (08:37)
== END 2017-11-28 13:40 | disposition home health service (06) | DRG 470 ==
LOC: M OR 10:09 → M MS5PR 16:40
PROVIDERS: Orthopaedic Surgery
PROC: 0SRD0J9 Replacement of Left Knee Joint with Synthetic Substitute, Cemented, Open Approach (ICD-10-PCS; principal; 2017-11-25 13:15)
DX: M17.12 Unilateral primary osteoarthritis, left knee (principal); B00.2 Herpesviral gingivostomatitis and pharyngotonsillitis; I10 Essential (primary) hypertension; E78.5 Hyperlipidemia, unspecified; F41.9 Anxiety disorder, unspecified; K21.9 Gastro-esophageal reflux disease without esophagitis; G43.909 Migraine, unspecified, not intractable, without status migrainosus; G47.00 Insomnia, unspecified; M35.3 Polymyalgia rheumatica; M48.061 Spinal stenosis, lumbar region without neurogenic claudication; G89.29 Other chronic pain; E11.9 Type 2 diabetes mellitus without complications; G47.30 Sleep apnea, unspecified; E66.9 Obesity, unspecified; D72.829 Elevated white blood cell count, unspecified; J45.909 Unspecified asthma, uncomplicated; Z91.030 Bee allergy status; Z88.0 Allergy status to penicillin; Z88.6 Allergy status to analgesic agent; Z88.5 Allergy status to narcotic agent; Z88.8 Allergy status to other drugs, medicaments and biological substances; Z91.038 Other insect allergy status; Z96.651 Presence of right artificial knee joint; Z87.891 Personal history of nicotine dependence; Z68.39 Body mass index [BMI] 39.0-39.9, adult

== ENCOUNTER → 2017-12-02 | Outpatient (REF) | payer OTHER, MEDICAID ==
[2017-12-02 12:14] LABS: INR 1.15; PROTHROMBIN TIME 14.9 SECONDS (12.4-14.5)
== END ==
LOC: M SHH 11:16
DX: Z79.01 Long term (current) use of anticoagulants (principal)
CPT/HCPCS: 85610

== ENCOUNTER → 2017-12-05 | Outpatient (REF) | payer OTHER, MEDICAID ==
[2017-12-05 13:07] LABS: INR 1.53; PROTHROMBIN TIME 18.8 SECONDS (12.4-14.5)
== END ==
LOC: M SHH 12:30
DX: Z79.01 Long term (current) use of anticoagulants (principal)
CPT/HCPCS: 85610

== ENCOUNTER → 2017-12-09 | Outpatient (REF) | payer OTHER, MEDICAID ==
[2017-12-09 14:27] LABS: INR 2.54; PROTHROMBIN TIME 28.3 SECONDS (12.4-14.5)
== END ==
LOC: M SHH 14:09
DX: Z51.81 Encounter for therapeutic drug level monitoring (principal); Z79.01 Long term (current) use of anticoagulants; D47.2 Monoclonal gammopathy
CPT/HCPCS: 82784

== ENCOUNTER → 2017-12-09 | Outpatient (REF) | payer OTHER, MEDICAID ==
[2017-12-09 20:55] LABS: REASON FOR REVIEW COMPREHENSIVE REVIEW; SLIDE REVIEW Report; SOURCE PERIPHERAL SMEAR
[2017-12-09 20:58] LABS: IMMUNOGLOBULIN G 942 MG/DL (681-1648); IMMUNOGLOBULIN M 52.4 MG/DL (40-230)
[2017-12-09 21:41] LABS: ERYTHROCYTE SEDIMENTATION RATE 24 mm/hr (0-30)
[2017-12-12 00:06] LABS: FREE KAPPA LIGHT CHAINS SERUM 24.4 mg/L (3.3-19.4); FREE LAMBDA LIGHT CHAINS SERUM 29.7 mg/L (5.7-26.3); KAPPA/LAMBDA RATIO SERUM 0.82 (0.26-1.65)
[2017-12-12 00:06] LABS: BETA 2 MICROGLOBULIN 2.4 mg/L (0.6-2.4)
== END ==
LOC: M LAB REF 18:29
DX: D47.2 Monoclonal gammopathy (principal)

== ENCOUNTER → 2017-12-12 | Outpatient (REF) | payer OTHER, MEDICAID ==
[2017-12-12 16:42] LABS: INR 2.79; PROTHROMBIN TIME 30.6 SECONDS (12.4-14.5)
== END ==
LOC: M LAB REF 15:31
DX: Z79.01 Long term (current) use of anticoagulants (principal)
CPT/HCPCS: 85610

== ENCOUNTER → 2017-12-16 | Outpatient (REF) | payer OTHER, MEDICAID ==
[2017-12-16 14:15] LABS: INR 2.35; PROTHROMBIN TIME 26.6 SECONDS (12.4-14.5)
== END ==
LOC: M SHH 13:18
DX: Z79.01 Long term (current) use of anticoagulants (principal)
CPT/HCPCS: 85610

== ENCOUNTER → 2017-12-18 | Outpatient (CLI) | payer OTHER, MEDICAID | LOC: M RAD 10:28 | DX: D47.2 Monoclonal gammopathy (principal) | CPT/HCPCS: 77075 ==

== ENCOUNTER → 2017-12-23 | Outpatient (REF) | payer OTHER ==
[2017-12-23 14:05] LABS: INR 1.06; PROTHROMBIN TIME 13.9 SECONDS (12.4-14.5)
== END ==
LOC: M SHH 12:56
DX: Z79.01 Long term (current) use of anticoagulants (principal)
CPT/HCPCS: 85610

== ENCOUNTER → 2017-12-26 | Outpatient (REF) | payer OTHER | LOC: M LAB REF 16:23 | DX: D47.2 Monoclonal gammopathy (principal); D72.829 Elevated white blood cell count, unspecified; Z79.899 Other long term (current) drug therapy | CPT/HCPCS: 84443 ==

== ENCOUNTER 2018-01-06 12:23 | Outpatient (RCR) | payer OTHER | END 2018-01-08 | disposition home or self-care (01) | LOC: M PT 12:23 | DX: Z51.89 Encounter for other specified aftercare (principal); Z96.659 Presence of unspecified artificial knee joint | CPT/HCPCS: 97110 ==

== ENCOUNTER 2018-01-13 12:42 | Outpatient (RCR) | payer OTHER | END 2018-02-08 | LOC: M PT 12:42 | DX: Z51.89 Encounter for other specified aftercare (principal); M17.12 Unilateral primary osteoarthritis, left knee | CPT/HCPCS: 97110 ==

== ENCOUNTER → 2018-01-27 | Outpatient (REF) | payer OTHER, MEDICAID | LOC: M SFHCPLAZ 11:42 | DX: E11.9 Type 2 diabetes mellitus without complications (principal) ==

== ENCOUNTER → 2018-02-04 | Outpatient (REF) | payer OTHER, MEDICAID ==
[2018-02-04 16:16] LABS: ESTIMATED AVERAGE GLUCOSE 128 MG/DL (60-110); HEMOGLOBIN A1c 6.1 %
== END ==
LOC: M SFHCPLAZ 13:24
DX: E11.9 Type 2 diabetes mellitus without complications (principal)
CPT/HCPCS: 83036

== ENCOUNTER 2018-02-13 12:43 | Outpatient (RCR) | payer OTHER | END 2018-03-10 | LOC: M PT 12:43 | DX: Z51.89 Encounter for other specified aftercare (principal); Z96.652 Presence of left artificial knee joint | CPT/HCPCS: 97110 ==

== ENCOUNTER 2018-03-12 11:56 | Outpatient (RCR) | payer OTHER | END 2018-04-10 | LOC: M PT 11:56 | DX: Z51.89 Encounter for other specified aftercare (principal); Z47.1 Aftercare following joint replacement surgery; M17.12 Unilateral primary osteoarthritis, left knee; Z96.652 Presence of left artificial knee joint; R26.89 Other abnormalities of gait and mobility; G56.00 Carpal tunnel syndrome, unspecified upper limb | CPT/HCPCS: 97110 ==

== ENCOUNTER → 2018-04-21 | Outpatient (REF) | payer OTHER ==
[2018-04-21 18:46] LABS: IMMUNOGLOBULIN G 945 MG/DL (681-1648); TOTAL PROTEIN 7.2 GM/DL (6.4-8.2)
[2018-04-22 10:30] LABS: ALBUMIN 4.06 GM/DL (3.29-5.55); ALBUMIN % 56.4 % (55.8-66.1); ALPHA-1-GLOBULIN % 4.6 % (2.9-4.9); ALPHA-1-GLOBULINS 0.33 GM/DL (0.17-0.41); ALPHA-2-GLOBULINS 0.93 GM/DL (0.42-0.99); ALPHA-2-GLOBULINS % 12.9 % (7.1-11.8); BETA-1-GLOBULINS 0.48 GM/DL (0.28-0.60); BETA-1-GLOBULINS % 6.7 % (4.7-7.2)
[2018-04-22 10:31] LABS: BETA-2-GLOBULINS 0.44 GM/DL (0.19-0.55); BETA-2-GLOBULINS % 6.1 % (3.2-6.5); GAMMA GLOBULIN % 13.3 % (11.1-18.8); GAMMA GLOBULINS 0.96 GM/DL (0.65-1.58)
[2018-04-24 00:06] LABS: FREE LAMBDA LIGHT CHAINS SERUM 22.1 mg/L (5.7-26.3); KAPPA/LAMBDA RATIO SERUM 0.77 (0.26-1.65)
== END ==
LOC: M LAB REF 17:41
DX: D47.2 Monoclonal gammopathy (principal)
CPT/HCPCS: 84165

== ENCOUNTER → 2018-05-20 | Outpatient (REF) | payer OTHER, MEDICAID ==
[2018-05-20 16:42] LABS: ESTIMATED AVERAGE GLUCOSE 154 MG/DL (60-110)
== END ==
LOC: M SFHCPLAZ 09:14
DX: E11.9 Type 2 diabetes mellitus without complications (principal); R63.5 Abnormal weight gain
CPT/HCPCS: 84480

== ENCOUNTER → 2018-08-15 | Outpatient (REF) | payer OTHER, MEDICAID ==
[2018-08-15 13:45] LABS: FREE T4 0.91 NG/DL (0.76-1.46)
[2018-08-15 13:51] LABS: HEMATOCRIT 45.3 % (36.0-47.0); HEMOGLOBIN 14.8 g/dl (12.0-15.5); MEAN CORPUSCULAR HEMOGLOBIN 31.7 pg (27.0-33.0); MEAN CORPUSCULAR HGB CONC 32.7 g/dl (32.0-36.5); PLATELET COUNT, AUTOMATED 240 10^3/uL (150-450); RED BLOOD COUNT 4.67 10^6/uL (4.00-5.40); RED CELL DISTRIBUTION WIDTH 14.5 % (11.5-14.5); WHITE BLOOD COUNT 11.6 10^3/uL (4.0-10.0)
[2018-08-15 14:00] LABS: ESTIMATED AVERAGE GLUCOSE 143 MG/DL (60-110); HEMOGLOBIN A1c 6.6 %
== END ==
LOC: M SFHCPLAZ 11:00
DX: D72.829 Elevated white blood cell count, unspecified (principal); R53.83 Other fatigue; E11.9 Type 2 diabetes mellitus without complications
CPT/HCPCS: 84443

== ENCOUNTER → 2018-11-13 | Outpatient (REF) | payer MEDICARE, MEDICAID ==
[~2018-11-13] MED LIST changes: +ADV250INH INH; +COUM2.5T17 PO; -GABA-282 PO; +GABA-843 PO; -LASI20TA PO; +LASI20TA3 PO; +MELO15TA28 PO; -MELO15TA4 PO; +METO25TA4 PO; +MYRB25TA PO; +POTA1TAB23; +PROC5TA PO; -PROM12.55 PO; +PROM12.56 PO; +TRAM50TA2 PO; +VENL100T
[2018-11-13 13:17] LABS: HEMATOCRIT 45.5 % (36.0-47.0); HEMOGLOBIN 14.6 g/dl (12.0-15.5); MEAN CORPUSCULAR HEMOGLOBIN 31.7 pg (27.0-33.0); MEAN CORPUSCULAR HGB CONC 32.1 g/dl (32.0-36.5); MEAN CORPUSCULAR VOLUME 98.9 fl (80.0-96.0); PLATELET COUNT, AUTOMATED 259 10^3/uL (150-450); WHITE BLOOD COUNT 10.9 10^3/uL (4.0-10.0)
[2018-11-13 14:12] LABS: HEMOGLOBIN A1c 6.6 %
[2018-11-13 14:32] LABS: MALB URINE SIEMENS 39.9 MG/L; MAU/CREAT RATIO 16.5 MCG/MG (0.0-30.0)
== END ==
LOC: M SFHCPLAZ 10:59
PROVIDERS: ATTEND Family Medicine
DX: D72.829 Elevated white blood cell count, unspecified (principal); E11.9 Type 2 diabetes mellitus without complications

== ENCOUNTER → 2018-11-30 | Outpatient (REF) | payer OTHER, MEDICAID, MEDICARE ==
[2018-12-03 15:27] LABS: FATS NEUTRAL Normal (.); FATS TOTAL Normal (.)
== END ==
LOC: M SFHCPLAZ 12:53
PROVIDERS: ATTEND Family Medicine
DX: R10.9 Unspecified abdominal pain (principal); R19.4 Change in bowel habit

== ENCOUNTER → 2018-12-08 | Outpatient (REF) | payer OTHER, MEDICAID, MEDICARE ==
[2018-12-08 16:24] LABS: BASO # 0.1 10^3/uL (0.0-0.2); BASO % 0.6 % (0.0-1.0); EOS # 0.2 10^3/uL (0.0-0.50); EOS % 1.9 % (0.0-3.0); HEMATOCRIT 45.9 % (36.0-47.0); HEMOGLOBIN 14.8 g/dl (12.0-15.5); LYMPH # 3.1 10^3/uL (1.5-4.5); LYMPH % 24.7 % (24.0-44.0); MEAN CORPUSCULAR HEMOGLOBIN 31.9 pg (27.0-33.0); MEAN CORPUSCULAR HGB CONC 32.2 g/dl (32.0-36.5); MEAN CORPUSCULAR VOLUME 98.9 fl (80.0-96.0); MONO # 0.8 10^3/uL (0.0-0.8); NEUTROPHILS # 8.4 10^3/uL (1.8-7.7); NEUTROPHILS % 66.2 % (36.0-66.0); PLATELET COUNT, AUTOMATED 265 10^3/uL (150-450); RED BLOOD COUNT 4.64 10^6/uL (4.00-5.40); WHITE BLOOD COUNT 12.7 10^3/uL (4.0-10.0)
[2018-12-08 17:23] LABS: ERYTHROCYTE SEDIMENTATION RATE 27 mm/hr (0-30)
== END ==
LOC: M LABDRAW1 15:38
PROVIDERS: ATTEND Physician Assistant
DX: Z96.652 Presence of left artificial knee joint (principal)

== ENCOUNTER → 2019-01-22 | Outpatient (CLI) | payer MEDICAID, MEDICARE ==
[~2019-01-22] MED LIST changes: +DIAZ2TAB PO; +GABA600T4 PO; +LORA0.5T11 PO
--- NOTE | 2019-01-22 19:07 | REP ---
The phase radionuclide bone scan of the shoulders: The study is performed after intravenous administration of 21.8 mCi of technetium 99m labeled MDP. On the skeletal phase of the study there is bilaterally symmetric increased uptake in the acromion processes bilaterally. This is not unusual. There is no bran prosthesis increased uptake in the right shoulder where the patient has a total arthroplasty. There is uptake in the left humeral head and glenoid, however, this does not appear increased compared to ribs. Upon review of the skeletal survey plain film study dated 12/18/2017, I note that there are tiny calcifications adjacent to the humeral tuberosities, consistent with calcific tendonitis. Impression: No evidence of increased uptake associated with the right shoulder arthroplasty. No definite increased uptake in the left humeral head or glenoid. Upon review of the plain film study dated 12/18/2017. There are calcifications adjacent to the left humeral head tuberosities compatible with calcific tendonitis. Electronically Signed by Frank Lopez MD 01/22/2019 06:58 P
== END ==
LOC: M RAD 09:54
PROVIDERS: ATTEND Physician Assistant
DX: M19.012 Primary osteoarthritis, left shoulder (principal); M61.412 Other calcification of muscle, left shoulder; Z96.612 Presence of left artificial shoulder joint
CPT/HCPCS: 78315; A9503

== ENCOUNTER → 2019-02-05 | Outpatient (CLI) | payer MEDICARE, OTHER ==
--- NOTE | 2019-02-05 14:23 | REP ---
Clinical: Lung screening. History smoking. Comparison: 01/09/2010 Technique: Axial low-dose noncontrast images from the thoracic inlet to the upper abdomen using lung screening technique. Findings: The lung martin are well-aerated. Small scattered partially calcified nodular densities are appreciated and demonstrate progressive chronic change when compared through 2009. Small area of scarring along the lateral aspect of the left lung base is also slightly increased. No significant consolidation, nodule or mass lesion appreciated. No pleural effusion. No pneumothorax. Tracheobronchial tree is patent. Mediastinum demonstrates atherosclerotic changes to the thoracic aorta and coronary arteries. No obvious adenopathy. Impression: Lung-RADS category I. Small chronic and primarily partially calcified nodules which have stabilized or slightly decreased since prior examination. No significant nodule or suspicious abnormality. Management recommendations include annual low-dose CT evaluation. Electronically Signed by Yordan Barrera MD 02/05/2019 02:15 P
== END ==
LOC: M RAD 11:31
PROVIDERS: ATTEND Internal Medicine Hematology & Oncology
DX: Z87.891 Personal history of nicotine dependence (principal); R91.8 Other nonspecific abnormal finding of lung field

== ENCOUNTER → 2019-03-03 | Outpatient (REF) | payer MEDICARE, OTHER, MEDICAID ==
[~2019-03-03] MED LIST changes: -/PANT40TA OR; -/WARF25TA OR; -ASPI1TAB PO; +ASPI81TA26 PO; +COUM1TAB18 OR; +METO1TAB63 PO; -METO25TAB PO; +PROT1TAB2 OR
[2019-03-03 17:59] LABS: APPEARANCE, URINE CLEAR (CLEAR); BACTERIA, URINE AUTO NEGATIVE (NEGATIVE); BILIRUBIN, URINE AUTO NEGATIVE (NEGATIVE); BLOOD, URINE BLOOD NEGATIVE (NEGATIVE); COLOR, URINE YELLOW (YELLOW); GLUCOSE, URINE (UA) AUTO NEGATIVE (NEGATIVE); KETONE, URINE AUTO NEGATIVE (NEGATIVE); LEUKOCYTE ESTERASE, URINE AUTO 1+ (NEGATIVE); MUCUS, URINE SMALL (NEGATIVE); NITRITE, URINE AUTO NEGATIVE (NEGATIVE); PROTEIN, URINE AUTO NEGATIVE (NEGATIVE); RBC, URINE AUTO 0 /HPF (0-3); SPECIFIC GRAVITY URINE AUTO 1.023 (1.002-1.035); SQUAMOUS EPITHELIAL CELL UR AU 1 /HPF (0-6); UROBILINOGEN, URINE AUTO 0.2 mg/dL (0.0-2.0); WBC, URINE AUTO 3 /HPF (0-3)
== END ==
LOC: M SFHCPLAZ 15:17
PROVIDERS: ATTEND Obstetrics & Gynecology
DX: R35.0 Frequency of micturition (principal)
CPT/HCPCS: 81001; 87086; 93005; G0463

== ENCOUNTER → 2019-03-09 | Outpatient (REF) | payer MEDICARE, MEDICAID ==
[2019-03-09 15:37] LABS: HEMATOCRIT 47.1 % (36.0-47.0); HEMOGLOBIN 15.1 g/dl (12.0-15.5); MEAN CORPUSCULAR HEMOGLOBIN 31.5 pg (27.0-33.0); MEAN CORPUSCULAR HGB CONC 32.1 g/dl (32.0-36.5); MEAN CORPUSCULAR VOLUME 98.3 fl (80.0-96.0); PLATELET COUNT, AUTOMATED 286 10^3/uL (150-450); RED BLOOD COUNT 4.79 10^6/uL (4.00-5.40)
[2019-03-09 15:44] LABS: ALBUMIN 3.6 GM/DL (3.2-5.2); ALT/SGPT 64 U/L (12-78); BILIRUBIN,TOTAL 0.3 MG/DL (0.2-1.0); BLOOD UREA NITROGEN 19 MG/DL (7-18); CALCIUM LEVEL 9.1 MG/DL (8.8-10.2); CARBON DIOXIDE LEVEL 33 MEQ/L (21-32); CHLORIDE LEVEL 103 MEQ/L (98-107); CHOLESTEROL LEVEL 216 MG/DL (<200); CHOLESTEROL RISK RATIO 4.408 (<5); CREATININE FOR GFR 0.74 MG/DL (0.55-1.30); GLOMERULAR FILTRATION RATE > 60.0 (>39); GLUCOSE, FASTING 98 MG/DL (70-100); HDL CHOLESTEROL 49 MG/DL (>40); LDL CHOLESTEROL 125 MG/DL (<100); NON-HDL-C 167 MG/DL; POTASSIUM SERUM 4.9 MEQ/L (3.5-5.1); SODIUM LEVEL 140 MEQ/L (136-145); TOTAL PROTEIN 6.6 GM/DL (6.4-8.2); TRIGLYCERIDES LEVEL 209 MG/DL (<150)
== END ==
LOC: M SFHCPLAZ 11:23
PROVIDERS: ATTEND Family Medicine
DX: I10 Essential (primary) hypertension (principal); E78.2 Mixed hyperlipidemia; D47.2 Monoclonal gammopathy

== ENCOUNTER → 2019-06-12 | Outpatient (REF) | payer MEDICARE, MEDICAID ==
[2019-06-12 16:13] LABS: BLOOD UREA NITROGEN 14 MG/DL (7-18); CALCIUM LEVEL 8.9 MG/DL (8.8-10.2); CARBON DIOXIDE LEVEL 31 MEQ/L (21-32); CHLORIDE LEVEL 104 MEQ/L (98-107); CREATININE FOR GFR 0.73 MG/DL (0.55-1.30); GLOMERULAR FILTRATION RATE > 60.0 (>39); GLUCOSE, FASTING 166 MG/DL (70-100); SODIUM LEVEL 142 MEQ/L (136-145)
== END ==
LOC: M SFHCPLAZ 13:05
PROVIDERS: ATTEND Family Medicine
DX: E11.9 Type 2 diabetes mellitus without complications (principal); I95.1 Orthostatic hypotension

== ENCOUNTER 2019-06-17 14:31 | Outpatient (RCR) | payer MEDICARE, MEDICAID ==
[~2019-06-17 14:31] MED LIST changes: -LISI20TA PO; +LISI20TA18 PO; +ZETI10TA16 PO; -ZETI10TA30 PO
== END 2019-07-11 ==
LOC: M PT 14:31
PROVIDERS: ATTEND Nurse Practitioner Adult Health
DX: M54.5 Low back pain (principal)

== ENCOUNTER 2019-08-06 12:10 | Outpatient (RCR) | payer MEDICARE, MEDICAID ==
[~2019-08-06 12:10] MED LIST changes: -LISI20TA18 PO; +LISI20TA19 PO; -METF750T PO; +METF750T36 PO
== END 2019-08-10 ==
LOC: M PT 12:10
PROVIDERS: ATTEND Nurse Practitioner Adult Health
DX: R29.898 Other symptoms and signs involving the musculoskeletal system (principal)

== ENCOUNTER 2019-09-07 11:00 | Outpatient (RCR) | payer MEDICARE, MEDICAID ==
[~2019-09-07 11:00] MED LIST changes: -OMEP40CA2 PO; +OMEP40CA97 PO
== END 2019-09-10 | disposition home or self-care (01) ==
LOC: M PT 11:00
PROVIDERS: ATTEND Nurse Practitioner Adult Health
DX: Z47.89 Encounter for other orthopedic aftercare (principal); R29.898 Other symptoms and signs involving the musculoskeletal system; R26.89 Other abnormalities of gait and mobility; Z98.890 Other specified postprocedural states

== ENCOUNTER 2019-10-07 10:32 | Outpatient (RCR) | payer MEDICARE, MEDICAID | END 2019-10-10 | LOC: M PT 10:32 | PROVIDERS: ATTEND Orthopaedic Surgery | DX: R29.898 Other symptoms and signs involving the musculoskeletal system (principal); R26.9 Unspecified abnormalities of gait and mobility ==

== ENCOUNTER 2019-11-06 14:28 | Emergency (ER) | payer MEDICARE, MEDICAID ==
[2019-11-06] MEDS ORDERED: METO1TAB32 (14:49)
[2019-11-06] MEDS ORDERED: TIZA4TAB4 (14:49)
[2019-11-06] MEDS ORDERED: AMIT100TA (14:49)
[2019-11-06] MEDS ORDERED: DOXY100C (14:49)
[2019-11-06] MEDS ORDERED: OMEP-221 (14:49)
[2019-11-06] MEDS ORDERED: JANU25TA (14:49)
[2019-11-06] MEDS ORDERED: ROPI0.5T (14:49)
[2019-11-06] MEDS ORDERED: METOCLOPRAMIDE 10 MG TAB PO ONE (15:15)
--- NOTE | 2019-11-06 15:40 | REP ---
Clinical: Trauma. Fall. Anticoagulant therapy. Technique: Axial noncontrast images from the skull base to the vertex with coronal re-formations. Comparison: 10/17/2015 . Findings: Age-related atrophy and microvascular ischemic changes are appreciated. The ventricles and sulci are symmetric. Lopez-white differentiation is maintained. There is no evidence for acute intracranial hemorrhage, mass/mass effect, pathology or infarction. No extra-axial fluid collection. Calvarium is intact. Paranasal sinuses and mastoid air cells are clear. Impression: Age related atrophy and microvascular ischemic changes. No acute intracranial hemorrhage, infarction, or mass/mass effect. Electronically Signed by Yordan Barrera MD 11/06/2019 03:32 P
--- NOTE | 2019-11-06 15:43 | REP ---
Clinical: Trauma. Fall. Technique: Axial noncontrast images from the skull base to the thoracic inlet with coronal and sagittal re-formations. Comparison: None. Findings: Straightening of normal lordosis is nonspecific and possibly secondary to positioning versus pain/spasm. Age-related osteopenia and moderate multilevel degenerative changes are appreciated. Alignment is maintained. There is no evidence for acute fracture / compression injury or subluxation. Posterior elements demonstrate hypertrophic facet changes. Spinal canal is patent. Impression: Age-related osteopenia and moderate multilevel degenerative changes. No acute fracture / compression injury or subluxation identified. Electronically Signed by Yordan Barrera MD 11/06/2019 03:35 P
--- NOTE | 2019-11-06 15:46 | REP ---
Clinical: Trauma. Technique: Axial noncontrast images from C7 through mid/lower lumbar spine with coronal and sagittal re-formations. Findings: Alignment and kyphosis maintained. Vertebral bodies are intact. There is no evidence for acute fracture / compression injury or subluxation. Moderate multilevel degenerative disc osteophyte complexes along with hypertrophic facet changes noted. Visualized lumbar spine demonstrates multilevel laminectomy and posterior fixation. Impression: Moderate/advanced multilevel degenerative changes through the thoracic and visualized lumbar spine. Lumbar laminectomy and posterior fixation noted. No acute fracture / compression injury or subluxation identified. Electronically Signed by Yordan Barrera MD 11/06/2019 03:37 P
[2019-11-06 16:08] VITALS: BP 141/67
== END 2019-11-06 16:21 | disposition home or self-care (01) ==
LOC: M ED 14:28
DX: S20.219A Contusion of unspecified front wall of thorax, initial encounter (principal); W01.0XXA Fall on same level from slipping, tripping and stumbling without subsequent striking against object, initial encounter; Y92.009 Unspecified place in unspecified non-institutional (private) residence as the place of occurrence of the external cause; Y93.9 Activity, unspecified; Y99.9 Unspecified external cause status; M50.33 Other cervical disc degeneration, cervicothoracic region; I10 Essential (primary) hypertension; J44.9 Chronic obstructive pulmonary disease, unspecified; K21.9 Gastro-esophageal reflux disease without esophagitis; Z79.51 Long term (current) use of inhaled steroids; Z79.899 Other long term (current) drug therapy; Z88.0 Allergy status to penicillin; Z88.5 Allergy status to narcotic agent; Z88.6 Allergy status to analgesic agent; Z88.8 Allergy status to other drugs, medicaments and biological substances; Z91.030 Bee allergy status

== ENCOUNTER → 2019-11-10 | Outpatient (RCR) | payer MEDICARE, MEDICAID ==
[~2019-11-10] MED LIST changes: +AMIT100TA; +DOXY100C; +JANU25TA; +METO1TAB32; +OMEP-221; +ROPI0.5T; +TIZA4TAB4
== END ==
LOC: M PT 10-14 11:04
PROVIDERS: ATTEND Orthopaedic Surgery
DX: S46.811D Strain of other muscles, fascia and tendons at shoulder and upper arm level, right arm, subsequent encounter (principal); W18.30XD Fall on same level, unspecified, subsequent encounter; Y92.009 Unspecified place in unspecified non-institutional (private) residence as the place of occurrence of the external cause

== ENCOUNTER → 2019-12-04 | Outpatient (CLI) | payer MEDICARE, MEDICAID ==
[~2019-12-04] MED LIST changes: -LORA0.5T11 PO; +LORA0.5T5 PO
[2019-12-04 18:25] LABS: HEMOGLOBIN A1c 6.9 %
[2019-12-04 18:43] LABS: CREATININE, URINE 20.8 MG/DL; MALB URINE SIEMENS < 5.0 MG/L
== END ==
LOC: M PLALAB 14:24
PROVIDERS: ATTEND Family Medicine
DX: E11.9 Type 2 diabetes mellitus without complications (principal)

== ENCOUNTER 2019-12-10 11:45 | Outpatient (RCR) | payer MEDICARE, MEDICAID | END 2019-12-11 | LOC: M PT 11:45 | PROVIDERS: ATTEND Orthopaedic Surgery | DX: R26.9 Unspecified abnormalities of gait and mobility (principal) ==

== ENCOUNTER → 2019-12-30 | Outpatient (REF) | payer MEDICARE, MEDICAID ==
[~2019-12-30] MED LIST changes: -ROPI0.5T; +ROPI0.5T3
[2019-12-30 13:31] LABS: BACTERIA, URINE AUTO 2+ (NEGATIVE); CALCIUM OXALATE CRYSTALS SMALL; RBC, URINE AUTO 0 /HPF (0-3); SQUAMOUS EPITHELIAL CELL UR AU 21 /HPF (0-6); WBC, URINE AUTO 0 /HPF (0-3)
== END ==
LOC: M SMT 13:07
PROVIDERS: ATTEND Specialist
DX: R32 Unspecified urinary incontinence (principal)
CPT/HCPCS: 51798; 81015; 87086; G0463

== ENCOUNTER → 2020-05-20 | Outpatient (CLI) | payer MEDICARE, MEDICAID ==
[~2020-05-20] MED LIST changes: -LISI20TA19 PO; +LISI20TA35 PO; -PROC5TA PO; +PROC5TAB57 PO
--- NOTE | 2020-05-20 12:02 | REPMRS ---
Patient History The patient states she had a clinical breast exam 6 months ago.Family history of prostate cancer at age 50 or over in father. Took estrogen for 2 months. 3D TOMOSYNTHESIS WAS PERFORMED. The Hanna Wright lifetime risk for breast cancer is 4.6%. TAYE Camacho. Digital Woman Screen Mammo: May 20, 2020 - Exam #: [id number] Bilateral CC and MLO view(s) were taken. Technologist: Taya Patel, Technologist Prior study comparison: May 02, 2017, digital woman screen mammo performed at [facility]. May 25, 2014, digital mammo diagnostic bilateral, performed at [facility]. FINDINGS: There are scattered fibroglandular densities. There has been no change in the appearance of the mammogram from the prior studies. There is a mild amount of residual fibroglandular tissue which is fairly symmetric. There is no interval development of dominant mass, architectural distortion, or clustered microcalcification suggestive of malignancy. Assessment: BI-RADS/ACR category 1 mammogram. Negative Mammogram. Recommendation Routine screening mammogram in 1 year (for women over age 40). This mammogram was interpreted with the aid of an FDA-approved computer-aided dectection system. Electronically Signed By: Frank Lopez MD 05/20/20 [id number]
== END ==
LOC: M WHC 09:58
PROVIDERS: ATTEND Family Medicine
DX: Z12.31 Encounter for screening mammogram for malignant neoplasm of breast (principal)

== ENCOUNTER → 2020-06-22 | Outpatient (REF) | payer MEDICARE, MEDICAID ==
[2020-07-24 11:31] LABS: BENZODIAZEPINES, URINE SEE SEPARATE REPORT
[2020-07-24 11:32] LABS: PHENCYLIDINE, URINE SEE SEPARATE REPORT
[2020-08-05 22:34] LABS: ALBUMIN 3.4 GM/DL (3.2-5.2); ALT/SGPT 57 U/L (12-78); BILIRUBIN,TOTAL 0.4 MG/DL (0.2-1.0); BLOOD UREA NITROGEN 20 MG/DL (7-18); CALCIUM LEVEL 9.2 MG/DL (8.8-10.2); CARBON DIOXIDE LEVEL 34 MEQ/L (21-32); CHLORIDE LEVEL 103 MEQ/L (98-107); CHOLESTEROL LEVEL 255 MG/DL (<200); CHOLESTEROL RISK RATIO 6.219 (<5); CREATININE FOR GFR 0.84 MG/DL (0.55-1.30); GLOMERULAR FILTRATION RATE > 60.0 (>39); GLUCOSE, FASTING 106 MG/DL (70-100); HDL CHOLESTEROL 41 MG/DL (>40); LDL CHOLESTEROL 182 MG/DL (<100); MALB URINE SIEMENS 8.2 MG/L; NON-HDL-C 214 MG/DL; POTASSIUM SERUM 5.2 MEQ/L (3.5-5.1); SODIUM LEVEL 140 MEQ/L (136-145); TOTAL PROTEIN 7.3 GM/DL (6.4-8.2); TRIGLYCERIDES LEVEL 160 MG/DL (<150)
[2020-08-05 22:36] LABS: HEMOGLOBIN A1c 6.6 %
== END ==
LOC: M SFHCPLAZ 15:30
PROVIDERS: ATTEND Family Medicine
DX: I10 Essential (primary) hypertension (principal); R42 Dizziness and giddiness; G43.009 Migraine without aura, not intractable, without status migrainosus; E11.9 Type 2 diabetes mellitus without complications; G89.29 Other chronic pain; E78.2 Mixed hyperlipidemia

== ENCOUNTER → 2020-07-04 | Outpatient (CLI) | payer MEDICARE ==
[2020-07-04 15:07] LABS: BLOOD UREA NITROGEN 18 MG/DL (7-18); CALCIUM LEVEL 9.5 MG/DL (8.8-10.2); CARBON DIOXIDE LEVEL 33 MEQ/L (21-32); CHLORIDE LEVEL 104 MEQ/L (98-107); CREATININE FOR GFR 0.78 MG/DL (0.55-1.30); GLOMERULAR FILTRATION RATE > 60.0 (>39); GLUCOSE, FASTING 113 MG/DL (70-100); POTASSIUM SERUM 4.6 MEQ/L (3.5-5.1); SODIUM LEVEL 142 MEQ/L (136-145)
== END ==
LOC: M PLALAB 10:53
PROVIDERS: ATTEND Family Medicine
DX: E87.5 Hyperkalemia (principal); M18.11 Unilateral primary osteoarthritis of first carpometacarpal joint, right hand

== ENCOUNTER → 2020-07-09 | Outpatient (CLI) | payer MEDICARE, MEDICAID | LOC: M LABSMTC 11:47 | PROVIDERS: ATTEND Orthopaedic Surgery | DX: Z20.828 Contact with and (suspected) exposure to other viral communicable diseases (principal) | CPT/HCPCS: C9803; U0003 ==

== ENCOUNTER → 2020-10-28 | Outpatient (REF) | payer MEDICARE, MEDICAID | LOC: M LAB REF 14:29 | PROVIDERS: ATTEND Physician Assistant | DX: Z11.59 Encounter for screening for other viral diseases (principal) ==

== ENCOUNTER → 2020-12-22 | Outpatient (CLI) | payer MEDICARE, MEDICAID ==
[~2020-12-22] MED LIST changes: +GABA-282 PO; -GABA-843 PO
--- NOTE | 2020-12-22 10:35 | REP ---
INDICATION: TOBACCO ABUSE, LUNG CANCER SCREENING F/U-JESSICA COMPARISON: 02/05/2019, 01/09/2010 TECHNIQUE: Axial noncontrast images from the thoracic inlet to the upper abdomen using low-dose lung screening technique (LDCT). FINDINGS: Bilateral lung martin are relatively well aerated with minimal linear bibasilar fibroatelectatic changes noted. Small nodules in the right upper lobe and perifissural right lower lobe again remain stable compared through 2009 and consistent with chronic change. No acute consolidation, significant nodule or mass lesion. No pleural effusion. No pneumothorax. Tracheobronchial tree is patent. IMPRESSION: 1. Mild linear fibroatelectatic changes at the bilateral bases. 2. Lung-RADS category 1. No significant nodule or mass lesion. Management recommendations include annual low-dose CT evaluation. <Electronically signed by Yordan Barrera > 12/22/20 [id number]
== END ==
LOC: M RAD 09:57
PROVIDERS: ATTEND Internal Medicine Medical Oncology
DX: F17.290 Nicotine dependence, other tobacco product, uncomplicated (principal)

== ENCOUNTER → 2021-01-03 | Outpatient (CLI) | payer MEDICARE, MEDICAID ==
[~2021-01-03] MED LIST changes: +E-Z-GAS II EFFERVESCENT PACKET (SODIUM BICARB./CITRIC ACID/SIMETHICONE) As Ordered ONE; +E-Z-HD 98% w/w 340GM SUSP BTL As Ordered ONE; +E-Z-PAQUE 96% w/w SUSP 176GM BTL As Ordered ONE
--- NOTE | 2021-01-03 16:05 | REP ---
INDICATION: ESOPHAGEAL REFLUX. TECHNIQUE: This procedure was performed by Mora De Guzman [facility], under the direct supervision of . Images were reviewed with prior to dictation. Liquid barium and gas producing crystals were given in the erect position, as well as liquid barium in the prone oblique position in order to perform a double contrast upper GI examination. FINDINGS: The structural iron erector film shows no organomegaly or pathological masses. The intestinal gas pattern is unremarkable. There are surgical clips in the right upper quadrant as well as Lorenzana rods along the entire lumbar and thoracic spine. The oral and pharyngeal stages of deglutition demonstrated laryngeal penetration. Esophageal transport is prompt and efficient and there is no evidence of esophagitis, stricture, or mucosal ring. However tertiary contractions were visualized during the exam. There is no evidence of a hiatal hernia. Gastroesophageal reflux is visualized to the level of the [place].. The stomach ely are normally outlined. The rugal folds are smooth and regular. There is no gastritis, neoplasm, or ulcerative disease. The duodenal ely are normally outlined. The mucosal folds are smooth and regular. There is no duodenitis, peptic ulcer disease or neoplasm. The visualized portion of the proximal small bowel appears normal in course and caliber. IMPRESSION: 1. Laryngeal penetration. 2. Tertiary contractions. 3. Gastroesophageal reflux to the level of the [place]. 0.2 minutes of fluoroscopy time was utilized for this procedure. Some fluoroscopic images are performed with last image hold technology. These images require no additional radiation. <Electronically signed by Mora De Guzman > 01/03/21 1979 <Electronically signed by Octavoi Teague > 01/03/21 [id number]
== END ==
LOC: M RAD 09:12
PROVIDERS: ATTEND Family Medicine
DX: K21.9 Gastro-esophageal reflux disease without esophagitis (principal)

== ENCOUNTER → 2021-01-30 | Outpatient (CLI) | payer MEDICARE, OTHER ==
[~2021-01-30] MED LIST changes: -E-Z-GAS II EFFERVESCENT PACKET (SODIUM BICARB./CITRIC ACID/SIMETHICONE) As Ordered ONE; -E-Z-HD 98% w/w 340GM SUSP BTL As Ordered ONE; -E-Z-PAQUE 96% w/w SUSP 176GM BTL As Ordered ONE
[2021-01-30 17:35] LABS: HEMOGLOBIN A1c 6.3 %
== END ==
LOC: M LAB 13:08
PROVIDERS: ATTEND Family Medicine
DX: E11.9 Type 2 diabetes mellitus without complications (principal)

== ENCOUNTER 2021-02-07 08:00 | Outpatient (RCR) | payer MEDICARE, OTHER | END 2021-02-08 | LOC: M PT 08:00 | PROVIDERS: ATTEND Physician Assistant | DX: S46.012D Strain of muscle(s) and tendon(s) of the rotator cuff of left shoulder, subsequent encounter (principal) ==

== ENCOUNTER → 2021-03-07 | Outpatient (CLI) | payer MEDICARE, MEDICAID ==
--- NOTE | 2021-03-07 16:54 | DEXAMM ---
INDICATION: Z13.820 SCR FOR OSTEOPOROSIS. COMPARISON: 07/04/2009. TECHNIQUE: Bone density was measured using dual-energy x-ray absorptiometry (DEXA). FINDINGS: LT FEMUR, TOTAL BMD 0.976 g/cm2 Young Adult T-Score -0.3 Age Matched Z-Score 1.3. LT NECK BMD 0.914 g/cm2 Young Adult T-Score -0.9 Age Matched Z-Score 0.9. RT FEMUR, TOTAL BMD 1.105 g/cm2 Young Adult T-Score 0.8 Age Matched Z-Score 2.4. RT NECK BMD 1.182 g/cm2 Young Adult T-Score 1.0 Age Matched Z-Score 2.8. IMPRESSION: There is normal bone density of the left hip. There is normal bone density of the right hip. The density of the left hip has decreased 8.9% since initial exam on 07/04/2009. The density of the right hip has decreased 5.3% since the initial exam on 07/04/2009. FOLLOW-UP: Recommendation for the next bone density exam: 5 years. <Electronically signed by Frank Lopez > 03/07/21 [id number]
== END ==
LOC: M WHC 10:39
PROVIDERS: ATTEND Family Medicine
DX: Z13.820 Encounter for screening for osteoporosis (principal); M81.0 Age-related osteoporosis without current pathological fracture

== ENCOUNTER 2021-03-08 11:00 | Outpatient (RCR) | payer MEDICARE, OTHER | END 2021-03-10 | LOC: M PT 11:00 | PROVIDERS: ATTEND Physician Assistant | DX: M25.512 Pain in left shoulder (principal) ==

== ENCOUNTER → 2021-03-20 | Outpatient (CLI) | payer MEDICARE, MEDICAID ==
[~2021-03-20] MED LIST changes: +ISOVUE-300 61% 50ML VIAL As Ordered ONE; +PROHANCE 279.3MG/ML 5ML VIAL As Ordered ONE
== END ==
LOC: M RADPRO 13:05
PROVIDERS: ATTEND Physician Assistant
DX: S46.012D Strain of muscle(s) and tendon(s) of the rotator cuff of left shoulder, subsequent encounter (principal); Z53.9 Procedure and treatment not carried out, unspecified reason

== ENCOUNTER → 2021-03-30 | Outpatient (REF) | payer MEDICARE, MEDICAID ==
[~2021-03-30] MED LIST changes: -ISOVUE-300 61% 50ML VIAL As Ordered ONE; +OMEP40CA4 PO; -OMEP40CA97 PO; -PROHANCE 279.3MG/ML 5ML VIAL As Ordered ONE
[2021-03-30 18:16] LABS: ALBUMIN 3.5 GM/DL (3.2-5.2); BLOOD UREA NITROGEN 18 MG/DL (7-18); CALCIUM LEVEL 9.3 MG/DL (8.8-10.2); CARBON DIOXIDE LEVEL 31 MEQ/L (21-32); CHLORIDE LEVEL 101 MEQ/L (98-107); CREATININE FOR GFR 0.66 MG/DL (0.55-1.30); GLOMERULAR FILTRATION RATE > 60.0 (>39); GLUCOSE, FASTING 117 MG/DL (70-100); MAGNESIUM LEVEL 1.7 MG/DL (1.8-2.4); PHOSPHORUS LEVEL 4.3 MG/DL (2.5-4.9); POTASSIUM SERUM 4.4 MEQ/L (3.5-5.1); SODIUM LEVEL 137 MEQ/L (136-145)
== END ==
LOC: M SFHCPLAZ 14:16
PROVIDERS: ATTEND Family Medicine
DX: M79.89 Other specified soft tissue disorders (principal)
CPT/HCPCS: 36415; 80069; 83735; G0463

== ENCOUNTER 2021-04-03 12:53 | Outpatient (RCR) | payer MEDICARE, MEDICAID ==
[~2021-04-03 12:53] MED LIST changes: -OMEP40CA4 PO; +OMEP40CA97 PO
== END 2021-04-10 ==
LOC: M PT 12:53
PROVIDERS: ATTEND Orthopaedic Surgery
DX: M25.551 Pain in right hip (principal)

== ENCOUNTER 2021-04-28 13:00 | Outpatient (RCR) | payer MEDICARE, OTHER ==
[~2021-04-28 13:00] MED LIST changes: +OMEP40CA4 PO; -OMEP40CA97 PO
== END 2021-05-10 ==
LOC: M PT 13:00
PROVIDERS: ATTEND Orthopaedic Surgery
DX: R26.89 Other abnormalities of gait and mobility (principal)

== ENCOUNTER → 2021-06-01 | Outpatient (CLI) | payer MEDICARE, OTHER ==
[~2021-06-01] MED LIST changes: +ISOVUE-300 61% 50ML VIAL As Ordered ONE; +PROHANCE 279.3MG/ML 5ML VIAL As Ordered ONE
== END ==
LOC: M RADPRO 06:35
PROVIDERS: ATTEND Physician Assistant
DX: S46.012D Strain of muscle(s) and tendon(s) of the rotator cuff of left shoulder, subsequent encounter (principal); Z53.8 Procedure and treatment not carried out for other reasons

== ENCOUNTER → 2021-06-20 | Outpatient (CLI) | payer MEDICARE, OTHER, MEDICAID ==
[~2021-06-20] MED LIST changes: -DOXY100C; +DOXY100C3; -ISOVUE-300 61% 50ML VIAL As Ordered ONE; -PROHANCE 279.3MG/ML 5ML VIAL As Ordered ONE
[2021-06-20 13:17] LABS: BLOOD UREA NITROGEN 15 MG/DL (7-18); CREATININE FOR GFR 0.72 MG/DL (0.55-1.30); GLOMERULAR FILTRATION RATE > 60.0 (>39)
== END ==
LOC: M LAB 11:24
PROVIDERS: ATTEND Physician Assistant
DX: S46.012D Strain of muscle(s) and tendon(s) of the rotator cuff of left shoulder, subsequent encounter (principal); W18.30XD Fall on same level, unspecified, subsequent encounter; Y92.009 Unspecified place in unspecified non-institutional (private) residence as the place of occurrence of the external cause; E11.9 Type 2 diabetes mellitus without complications

== ENCOUNTER → 2021-06-20 | Outpatient (CLI) | payer MEDICARE, OTHER ==
[2021-06-20 13:25] LABS: CHOLESTEROL RISK RATIO 5.763 (<5)
[2021-06-20 13:32] LABS: MALB URINE SIEMENS 39.2 MG/L; MAU/CREAT RATIO 11.5 MCG/MG (0.0-30.0)
[2021-06-20 13:59] LABS: HEMOGLOBIN A1c 6.1 %
== END ==
LOC: M LAB 11:27
PROVIDERS: ATTEND Family Medicine
DX: E11.9 Type 2 diabetes mellitus without complications (principal)

== ENCOUNTER → 2021-07-19 | Outpatient (CLI) | payer MEDICARE, MEDICAID ==
--- NOTE | 2021-07-19 15:44 | REP ---
INDICATION: LOCALIZED SWELLING, MASS AND LUMP, TRUNK. COMPARISON: 12/18/2017. TECHNIQUE: Four AP and lateral views thoracic spine. FINDINGS: There is no compression fracture. There is normal thoracic kyphosis and alignment. Mild spurring is noted of the upper thoracic vertebral bodies with large osteophytes of the T4 through T6 vertebral bodies. Large bridging osteophytes are noted of T8 through L1. There is mild disc space narrowing and subchondral sclerosis at all levels. New pedicle screws and Lorenzana rods are noted extending from the T9 level inferiorly into the lumbar spine. IMPRESSION: No compression fracture. Diffuse degenerative changes. Post surgical changes as discussed above. <Electronically signed by Frank Lopez > 07/19/21 [id number]
== END ==
LOC: M PLAIMG 14:33
PROVIDERS: ATTEND Physician Assistant
DX: R22.2 Localized swelling, mass and lump, trunk (principal)
CPT/HCPCS: 72072; G0463

== ENCOUNTER → 2021-08-10 | Outpatient (CLI) | payer MEDICARE, MEDICAID ==
[2021-08-10 14:28] LABS: APPEARANCE, URINE CLOUDY (CLEAR); BACTERIA, URINE AUTO 1+ (NEGATIVE); BILIRUBIN, URINE AUTO NEGATIVE (NEGATIVE); BLOOD, URINE BLOOD 3+ (NEGATIVE); COLOR, URINE YELLOW (YELLOW); GLUCOSE, URINE (UA) AUTO NEGATIVE (NEGATIVE); KETONE, URINE AUTO NEGATIVE (NEGATIVE); LEUKOCYTE ESTERASE, URINE AUTO 1+ (NEGATIVE); MUCUS, URINE SMALL (NEGATIVE); NITRITE, URINE AUTO NEGATIVE (NEGATIVE); PROTEIN, URINE AUTO NEGATIVE (NEGATIVE); RBC, URINE AUTO 81 /HPF (0-3); SPECIFIC GRAVITY URINE AUTO 1.013 (1.002-1.035); SQUAMOUS EPITHELIAL CELL UR AU 13 /HPF (0-6); UROBILINOGEN, URINE AUTO 0.2 mg/dL (0.0-2.0); WBC, URINE AUTO 12 /HPF (0-3)
== END ==
LOC: M PLALAB 11:09
PROVIDERS: ATTEND Family Medicine
DX: R39.15 Urgency of urination (principal)

== ENCOUNTER → 2021-08-24 | Outpatient (CLI) | payer MEDICARE, MEDICAID ==
[2021-08-24 14:18] LABS: HEMATOCRIT 41.9 % (36.0-47.0); HEMOGLOBIN 13.9 g/dl (12.0-15.5); MEAN CORPUSCULAR HEMOGLOBIN 30.8 pg (27.0-33.0); MEAN CORPUSCULAR HGB CONC 33.2 g/dl (32.0-36.5); MEAN CORPUSCULAR VOLUME 92.7 fl (80.0-96.0); PLATELET COUNT, AUTOMATED 222 10^3/uL (150-450); RED BLOOD COUNT 4.52 10^6/uL (4.00-5.40); WHITE BLOOD COUNT 9.1 10^3/uL (4.0-10.0)
[2021-08-24 14:29] LABS: INR 1.03; PROTHROMBIN TIME 13.9 SECONDS (12.7-14.5)
[2021-08-24 14:46] LABS: ALBUMIN 3.1 GM/DL (3.2-5.2); ALT/SGPT 32 U/L (12-78); BILIRUBIN,TOTAL 0.3 MG/DL (0.2-1.0); BLOOD UREA NITROGEN 15 MG/DL (7-18); CALCIUM LEVEL 9.7 MG/DL (8.8-10.2); CARBON DIOXIDE LEVEL 33 MEQ/L (21-32); CHLORIDE LEVEL 105 MEQ/L (98-107); GLOMERULAR FILTRATION RATE > 60.0 (>39); GLUCOSE, FASTING 107 MG/DL (70-100); POTASSIUM SERUM 4.1 MEQ/L (3.5-5.1); SODIUM LEVEL 141 MEQ/L (136-145); TOTAL PROTEIN 6.3 GM/DL (6.4-8.2)
--- NOTE | 2021-08-24 15:09 | REP ---
INDICATION: RIGHT HIP OSTEOARTHRITIS-PRE SURGERY-LABS AND EKG FIRST COMPARISON: Report dated 11/12/2017 TECHNIQUE: PA and lateral. FINDINGS: The mediastinum and cardiac silhouette are normal. Very subtle opacity at the left base cannot be excluded and may represent chronic change versus atelectasis. Consider correlation with auscultation and physical examination. The skeletal structures are intact and normal. Evidence for prior Lorenzana rods through the thoracolumbar spine and right shoulder repair/replacement. IMPRESSION: Cannot exclude subtle acute left lower lobe airspace disease. <Electronically signed by Yordan Barrera > 08/24/21 [id number]
[2021-08-24 15:11] LABS: ERYTHROCYTE SEDIMENTATION RATE 20 mm/hr (0-30)
--- NOTE | 2021-08-24 19:20 | ECGEPIP ---
[facility] Test Date: 2021-08-24 Pat Name: SABA PEREZ Department: Room: - Gender: Female [employer]: : 1950 Requested By: Declan Jackson Order Number: [id number] Reading MD: Memo Bernal Measurements Intervals [place] Rate: 59 P: 33 [place]: 184 QRS: -31 QRSD: 134 T: 7 QT: 440 QTc: 435 Interpretive Statements Sinus bradycardia Left axis deviation Right bundle branch block Similar to tracing done 11-12-17 but with slower rate Electronically Signed on 08-24-2021 19:20:14 EDT by Memo Bernal
== END ==
LOC: M LAB 13:41
PROVIDERS: ATTEND Orthopaedic Surgery
DX: M16.11 Unilateral primary osteoarthritis, right hip (principal); Z79.01 Long term (current) use of anticoagulants

== ENCOUNTER → 2021-09-07 | Outpatient (REF) | payer MEDICARE, MEDICAID ==
[2021-09-08 10:25] LABS: APPEARANCE, URINE CLEAR (CLEAR); BACTERIA, URINE AUTO NEGATIVE (NEGATIVE); BILIRUBIN, URINE AUTO NEGATIVE (NEGATIVE); BLOOD, URINE BLOOD NEGATIVE (NEGATIVE); COLOR, URINE STRAW (YELLOW); GLUCOSE, URINE (UA) AUTO NEGATIVE (NEGATIVE); KETONE, URINE AUTO NEGATIVE (NEGATIVE); LEUKOCYTE ESTERASE, URINE AUTO NEGATIVE (NEGATIVE); NITRITE, URINE AUTO NEGATIVE (NEGATIVE); PROTEIN, URINE AUTO NEGATIVE (NEGATIVE); RBC, URINE AUTO 0 /HPF (0-3); SPECIFIC GRAVITY URINE AUTO 1.004 (1.002-1.035); SQUAMOUS EPITHELIAL CELL UR AU 0 /HPF (0-6); UROBILINOGEN, URINE AUTO 0.2 mg/dL (0.0-2.0); WBC, URINE AUTO 1 /HPF (0-3)
== END ==
LOC: M SFHCPLAZ 10:05
PROVIDERS: ATTEND Family Medicine
DX: N30.01 Acute cystitis with hematuria (principal)

== ENCOUNTER → 2021-11-20 | Outpatient (CLI) | payer MEDICARE, OTHER ==
[~2021-11-20] MED LIST changes: -OMEP-221; +OMEP40CA5; +TIZA10TA; -TIZA4TAB4
== END ==
LOC: M LABSMTC 13:14
PROVIDERS: ATTEND Pediatrics
DX: Z11.52 Encounter for screening for COVID-19 (principal)
CPT/HCPCS: C9803; U0003

== ENCOUNTER → 2021-11-30 | Outpatient (REF) | payer MEDICARE, OTHER, MEDICAID | LOC: M SFHCPLAZ 16:58 | PROVIDERS: ATTEND Family Medicine | DX: M48.062 Spinal stenosis, lumbar region with neurogenic claudication (principal); G89.29 Other chronic pain ==

== ENCOUNTER → 2021-12-04 | Outpatient (CLI) | payer MEDICARE, MEDICAID ==
[2021-12-04 14:12] LABS: HEMOGLOBIN A1c 5.5 %
[2021-12-04 14:30] LABS: ALBUMIN 3.4 GM/DL (3.2-5.2); ALT/SGPT 26 U/L (12-78); BILIRUBIN,TOTAL 0.2 MG/DL (0.2-1.0); BLOOD UREA NITROGEN 17 MG/DL (7-18); CALCIUM LEVEL 9.9 MG/DL (8.8-10.2); CARBON DIOXIDE LEVEL 32 MEQ/L (21-32); CHLORIDE LEVEL 101 MEQ/L (98-107); CHOLESTEROL LEVEL 187 MG/DL (<200); CHOLESTEROL RISK RATIO 5.194 (<5); CREATININE FOR GFR 0.55 MG/DL (0.55-1.30); FREE T4 0.92 NG/DL (0.76-1.46); GLOMERULAR FILTRATION RATE > 60.0 (>39); GLUCOSE, FASTING 100 MG/DL (70-100); HDL CHOLESTEROL 36 MG/DL (>40); LDL CHOLESTEROL 109 MG/DL (<100); NON-HDL-C 151 MG/DL; POTASSIUM SERUM 4.9 MEQ/L (3.5-5.1); SODIUM LEVEL 140 MEQ/L (136-145); TOTAL PROTEIN 6.8 GM/DL (6.4-8.2); TRIGLYCERIDES LEVEL 208 MG/DL (<150)
== END ==
LOC: M PLALAB 11:34
PROVIDERS: ATTEND Family Medicine
DX: R30.0 Dysuria (principal); Z79.899 Other long term (current) drug therapy

== ENCOUNTER 2022-03-17 00:56 | Emergency (ER) | payer MEDICARE, MEDICAID ==
[~2022-03-17] VITALS: Ht 160 cm; Wt 76.8 kg
[2022-03-17] MEDS ORDERED: HYDR-3363 PO (01:28)
[2022-03-17] MEDS ORDERED: TRAM50TA2 PO (01:28)
[2022-03-17] MEDS ORDERED: TRAZ-189 PO (01:28)
[2022-03-17] MEDS ORDERED: PANT20TA6 PO (01:28)
[2022-03-17] MEDS ORDERED: hydrALAZINE 20MG/ML 1ML VIAL (J0360 PER 20MG) IV STA (01:44)
[2022-03-17 02:13] LABS: BASO # 0.1 10^3/uL (0.0-0.2); BASO % 0.4 % (0.0-1.0); EOS # 0.3 10^3/uL (0.0-0.5); EOS % 2.2 % (0.0-3.0); HEMATOCRIT 41.6 % (36.0-47.0); HEMOGLOBIN 14.1 g/dl (12.0-15.5); LYMPH # 4.3 10^3/uL (1.5-5.0); LYMPH % 37.4 % (24.0-44.0); MEAN CORPUSCULAR HEMOGLOBIN 29.9 pg (27.0-33.0); MEAN CORPUSCULAR HGB CONC 33.9 g/dl (32.0-36.5); MEAN CORPUSCULAR VOLUME 88.1 fl (80.0-96.0); MONO # 0.8 10^3/uL (0.0-0.8); MONO % 6.8 % (2.0-8.0); NEUTROPHILS % 52.8 % (36.0-66.0); PLATELET COUNT, AUTOMATED 221 10^3/uL (150-450); RED BLOOD COUNT 4.72 10^6/uL (4.00-5.40); WHITE BLOOD COUNT 11.4 10^3/uL (4.0-10.0)
[2022-03-17 02:37] LABS: CK-MB VALUE MASS 3.3 NG/ML (<3.6); MB/CK RELATIVE INDEX 4.18 (< OR =4)
[2022-03-17 02:40] LABS: BLOOD UREA NITROGEN 14 MG/DL (7-18); CALCIUM LEVEL 9.1 MG/DL (8.8-10.2); CARBON DIOXIDE LEVEL 28 MEQ/L (21-32); CHLORIDE LEVEL 105 MEQ/L (98-107); CREATININE FOR GFR 0.51 MG/DL (0.55-1.30); GLOMERULAR FILTRATION RATE > 60.0 (>39); GLUCOSE, FASTING 98 MG/DL (70-100); POTASSIUM SERUM 3.9 MEQ/L (3.5-5.1); SODIUM LEVEL 139 MEQ/L (136-145)
[2022-03-17] MEDS ORDERED: hydrALAZINE 20MG/ML 1ML VIAL (J0360 PER 20MG) IV ONE (02:45)
[2022-03-17 03:30] VITALS: BP 140/88
[2022-03-17 04:16] VITALS: BP 158/82
== END 2022-03-17 04:55 | disposition home or self-care (01) ==
LOC: EDBD 00:56 → M ED 00:56
DX: I16.0 Hypertensive urgency (principal); I10 Essential (primary) hypertension; I45.10 Unspecified right bundle-branch block; I25.10 Atherosclerotic heart disease of native coronary artery without angina pectoris; E11.9 Type 2 diabetes mellitus without complications; J44.9 Chronic obstructive pulmonary disease, unspecified; G43.909 Migraine, unspecified, not intractable, without status migrainosus; F41.9 Anxiety disorder, unspecified; Z90.49 Acquired absence of other specified parts of digestive tract; Z90.710 Acquired absence of both cervix and uterus; Z88.0 Allergy status to penicillin; Z88.6 Allergy status to analgesic agent; Z88.8 Allergy status to other drugs, medicaments and biological substances; Z79.899 Other long term (current) drug therapy
CPT/HCPCS: 71045; 80048; 82550; 82553; 84484; 85025; 93005; 93041; 94760; 96374; 99284; J0360

== ENCOUNTER → 2022-03-28 | Outpatient (CLI) | payer MEDICAID, MEDICARE, OTHER ==
[~2022-03-28] MED LIST changes: +BAYE81TA10 PO; +FISH1CAP26 PO; +FURO20TA2 PO; +JANU25TA PO; +LEVA12INH INH; -METO1TAB32; +METO1TAB32 PO; +MYSO50TA5 PO; +PANT20TA6 PO; +POTA10TA17 PO; +PROM25TA12 PO; +TRAZ-189 PO; +VALA1TAB5 PO
== END ==
LOC: M LABSMTC 11:45
PROVIDERS: ATTEND Anesthesiology
DX: Z01.818 Encounter for other preprocedural examination (principal); Z11.52 Encounter for screening for COVID-19

== ENCOUNTER 2022-04-02 11:27 | Day surgery (SDC) | payer MEDICAID, MEDICARE, OTHER ==
[~2022-04-02] VITALS: Ht 162.6 cm; Wt 75.0 kg
[~2022-04-02 11:27] MED LIST changes: +BENZ-18 PO; +CLIN150C17 PO; +LEVO25TA5 PO; +LIDOCAINE 2% 100MG/5ML SDV (FOR ANES.) As Ordered ONE; +NS 1,000 ML IV ONE; +OXYB5TAB10 PO; +ROPI1TAB3 PO; +fentaNYL 100 MCG/2 ML INJECTION As Ordered ONE; +propofoL 500 MG/50 ML VIAL As Ordered ONE
[2022-04-02 14:20] VITALS: BP 175/75
== END 2022-04-02 14:35 | disposition home or self-care (01) ==
LOC: M OPP 11:27
PROVIDERS: ATTEND Internal Medicine Gastroenterology
DX: Z12.11 Encounter for screening for malignant neoplasm of colon (principal); Z86.010 Personal history of colon polyps; K63.89 Other specified diseases of intestine; K63.5 Polyp of colon; K57.30 Diverticulosis of large intestine without perforation or abscess without bleeding; K64.8 Other hemorrhoids; K31.89 Other diseases of stomach and duodenum; R68.81 Early satiety; R11.0 Nausea; Z79.1 Long term (current) use of non-steroidal anti-inflammatories (NSAID); Z79.82 Long term (current) use of aspirin; Z79.84 Long term (current) use of oral hypoglycemic drugs; Z79.891 Long term (current) use of opiate analgesic; Z79.899 Other long term (current) drug therapy; Z88.0 Allergy status to penicillin; Z88.8 Allergy status to other drugs, medicaments and biological substances; Z88.5 Allergy status to narcotic agent; Z91.030 Bee allergy status
CPT/HCPCS: 43239; 45380; 45385; 88305; J3010

== ENCOUNTER → 2022-05-21 | Outpatient (CLI) | payer MEDICARE, MEDICAID ==
[~2022-05-21] MED LIST changes: +ALBU2.5V10 INH; -ALBU83IN INH; -LIDOCAINE 2% 100MG/5ML SDV (FOR ANES.) As Ordered ONE; -NS 1,000 ML IV ONE; -fentaNYL 100 MCG/2 ML INJECTION As Ordered ONE; -propofoL 500 MG/50 ML VIAL As Ordered ONE
[2022-05-21 19:52] LABS: FREE T4 1.01 NG/DL (0.76-1.46); THYROID STIMULATING HORMONE 1.78 uIU/ML (0.358-3.740)
== END ==
LOC: M PLALAB 13:07
PROVIDERS: ATTEND Family Medicine
DX: M54.9 Dorsalgia, unspecified (principal); Z98.1 Arthrodesis status; Z86.39 Personal history of other endocrine, nutritional and metabolic disease

== ENCOUNTER → 2022-05-21 | Outpatient (CLI) | payer MEDICARE, MEDICAID ==
[2022-05-21 15:27] LABS: HEMATOCRIT 43.8 % (36.0-47.0); HEMOGLOBIN 13.9 g/dl (12.0-15.5); MEAN CORPUSCULAR HEMOGLOBIN 30.2 pg (27.0-33.0); MEAN CORPUSCULAR HGB CONC 31.7 g/dl (32.0-36.5); PLATELET COUNT, AUTOMATED 239 10^3/uL (150-450); RED BLOOD COUNT 4.61 10^6/uL (4.00-5.40); WHITE BLOOD COUNT 8.5 10^3/uL (4.0-10.0)
[2022-05-21 19:53] LABS: ALBUMIN 3.4 GM/DL (3.2-5.2); ALT/SGPT 22 U/L (12-78); BILIRUBIN,TOTAL 0.3 MG/DL (0.2-1.0); BLOOD UREA NITROGEN 15 MG/DL (7-18); CALCIUM LEVEL 9.3 MG/DL (8.8-10.2); CARBON DIOXIDE LEVEL 34 MEQ/L (21-32); CHLORIDE LEVEL 107 MEQ/L (98-107); CREATININE FOR GFR 0.64 MG/DL (0.55-1.30); GLOMERULAR FILTRATION RATE > 60.0 (>39); GLUCOSE, FASTING 79 MG/DL (70-100); POTASSIUM SERUM 4.5 MEQ/L (3.5-5.1); SODIUM LEVEL 141 MEQ/L (136-145); TOTAL PROTEIN 6.4 GM/DL (6.4-8.2)
== END ==
LOC: M PLALAB 13:11
PROVIDERS: ATTEND Orthopaedic Surgery
DX: M54.6 Pain in thoracic spine (principal); Z98.1 Arthrodesis status

== ENCOUNTER → 2022-06-01 | Outpatient (REF) | payer MEDICARE, MEDICAID ==
[~2022-06-01] MED LIST changes: -MAXA10TA14 PO; +POTA-150 PO; -POTA10TA17 PO; +RIZA10TA64 PO
[2022-06-11 09:07] LABS: AMOBARBITAL, URINE Negative (Cutoff=200); BARBITURATES, URINE Negative (Cutoff=200); BUTALBITAL, URINE Negative (Cutoff=200); CREATININE, URINE 133.2 mg/dL (20.0-300.0); OXYCODONE URINE Positive (.); OXYCODONE, URINE CONFIRM 1910 ng/mL (Cutoff=100); OXYCODONE/OXYMORPH, URINE Positive (Cutoff=100); OXYMORPHONE, URINE Positive (.); OXYMORPHONE, URINE CONFIRM 457 ng/mL (Cutoff=100); PENTOBARBITAL, URINE Negative (Cutoff=200); PHENOBARBITAL, URINE Comment: (.); SECOBARBITAL, URINE Negative (Cutoff=200)
== END ==
LOC: M SFHCPLAZ 16:47
PROVIDERS: ATTEND Family Medicine
DX: G89.4 Chronic pain syndrome (principal)

== ENCOUNTER → 2022-06-27 | Outpatient (CLI) | payer MEDICARE, MEDICAID ==
[~2022-06-27] MED LIST changes: +MAXA10TA14 PO; -RIZA10TA64 PO
[2022-06-27 13:32] LABS: HEMATOCRIT 47.1 % (36.0-47.0); MEAN CORPUSCULAR HEMOGLOBIN 29.4 pg (27.0-33.0); MEAN CORPUSCULAR HGB CONC 31.8 g/dl (32.0-36.5); MEAN CORPUSCULAR VOLUME 92.4 fl (80.0-96.0); PLATELET COUNT, AUTOMATED 187 10^3/uL (150-450)
[2022-06-27 14:15] LABS: ALBUMIN 3.3 GM/DL (3.2-5.2); ALT/SGPT 28 U/L (12-78); BILIRUBIN,TOTAL 0.2 MG/DL (0.2-1.0); BLOOD UREA NITROGEN 19 MG/DL (7-18); CALCIUM LEVEL 9.5 MG/DL (8.8-10.2); CARBON DIOXIDE LEVEL 35 MEQ/L (21-32); CHLORIDE LEVEL 106 MEQ/L (98-107); GLOMERULAR FILTRATION RATE > 60.0 (>39); GLUCOSE, FASTING 99 MG/DL (70-100); POTASSIUM SERUM 4.4 MEQ/L (3.5-5.1); SODIUM LEVEL 142 MEQ/L (136-145); TOTAL PROTEIN 6.7 GM/DL (6.4-8.2)
== END ==
LOC: M LAB 12:00
PROVIDERS: ATTEND Orthopaedic Surgery
DX: M54.14 Radiculopathy, thoracic region (principal)

== ENCOUNTER → 2022-08-06 | Outpatient (CLI) | payer MEDICARE, MEDICAID ==
[~2022-08-06] MED LIST changes: -MAXA10TA14 PO; +RIZA10TA64 PO
[2022-08-06 13:32] LABS: BLOOD UREA NITROGEN 18 MG/DL (7-18); CREATININE FOR GFR 0.67 MG/DL (0.55-1.30); GLUCOSE, FASTING 93 MG/DL (70-100)
[2022-08-06 13:33] LABS: ALBUMIN 3.6 GM/DL (3.2-5.2); ALT/SGPT 29 U/L (12-78); BILIRUBIN,TOTAL 0.3 MG/DL (0.2-1.0); CALCIUM LEVEL 9.6 MG/DL (8.8-10.2); CARBON DIOXIDE LEVEL 33 MEQ/L (21-32); CHLORIDE LEVEL 104 MEQ/L (98-107); GLOMERULAR FILTRATION RATE > 60.0 (>39); POTASSIUM SERUM 4.1 MEQ/L (3.5-5.1); SODIUM LEVEL 138 MEQ/L (136-145); TOTAL PROTEIN 7.3 GM/DL (6.4-8.2)
== END ==
LOC: M LAB 11:48
PROVIDERS: ATTEND Orthopaedic Surgery
DX: Z98.1 Arthrodesis status (principal); M54.6 Pain in thoracic spine

== ENCOUNTER → 2022-11-20 | Outpatient (CLI) | payer MEDICARE, MEDICAID ==
[2022-11-20 14:05] LABS: APPEARANCE, URINE MANUAL HAZY (CLEAR); COLOR, URINE MANUAL YELLOW (YELLOW)
[2022-11-20 14:06] LABS: BILIRUBIN, URINE MANUAL NEGATIVE (NEGATIVE); BLOOD URINE MANUAL POSITIVE (NEGATIVE); GLUCOSE, URINE (UA) MANUAL NEGATIVE (NEGATIVE); KETONE, URINE MANUAL NEGATIVE (NEGATIVE); LEUKOCYTE ESTERASE, URINE MAN POSITIVE (NEGATIVE); NITRITE, URINE MANUAL NEGATIVE (NEGATIVE); PROTEIN, URINE MANUAL 1+ mg/dL (NEGATIVE); SPECIFIC GRAVITY,URINE MANUAL 1.025 (1.002-1.035); UROBILINOGEN, URINE MANUAL NORMAL (NORMAL)
[2022-11-20 14:25] LABS: BACTERIA, URINE MOD AMOUNT; HYALINE CAST, URINE NONE SEEN /lpf (0-1); RBC, URINE 20-30 /hpf (0-3); SQUAMOUS EPITHELIAL CELL URINE MOD AMOUNT /hpf (SMALL AMT)
[2022-11-20 15:21] LABS: BASO # 0.1 10^3/uL (0.0-0.2); EOS # 0.1 10^3/uL (0.0-0.5); EOS % 1.5 % (0.0-3.0); HEMATOCRIT 44.5 % (36.0-47.0); HEMOGLOBIN 14.2 g/dl (12.0-15.5); LYMPH # 2.4 10^3/uL (1.5-5.0); LYMPH % 24.7 % (24.0-44.0); MEAN CORPUSCULAR HEMOGLOBIN 28.7 pg (27.0-33.0); MEAN CORPUSCULAR HGB CONC 31.9 g/dl (32.0-36.5); MEAN CORPUSCULAR VOLUME 89.9 fl (80.0-96.0); MONO # 0.5 10^3/uL (0.0-0.8); MONO % 5.5 % (2.0-8.0); NEUTROPHILS # 6.4 10^3/uL (1.5-8.5); NEUTROPHILS % 66.8 % (36.0-66.0); PLATELET COUNT, AUTOMATED 304 10^3/uL (150-450); RED BLOOD COUNT 4.95 10^6/uL (4.00-5.40); WHITE BLOOD COUNT 9.6 10^3/uL (4.0-10.0)
[2022-11-20 15:53] LABS: ALBUMIN 3.3 G/DL (3.2-5.2); ALKALINE PHOSPHATASE 79 U/L (46-116); ALT/SGPT 18 U/L (7.0-40); AST/SGOT 16 U/L (<34); BILIRUBIN,TOTAL 0.4 MG/DL (0.3-1.2); BLOOD UREA NITROGEN 19 MG/DL (9-23); CALCIUM LEVEL 9.4 MG/DL (8.3-10.6); CARBON DIOXIDE LEVEL 31 MMOL/L (20-31); CHLORIDE LEVEL 102 MMOL/L (98-107); CREATININE FOR GFR 0.66 MG/DL (0.55-1.30); GLOMERULAR FILTRATION RATE > 60.0 (>39); GLUCOSE, FASTING 94 MG/DL (74-106); POTASSIUM SERUM 4.3 MMOL/L (3.5-5.1); SODIUM LEVEL 139 MMOL/L (136-145); TOTAL PROTEIN 6.5 G/DL (5.7-8.2)
== END ==
LOC: M PLALAB 12:06
PROVIDERS: ATTEND Family Medicine
DX: R10.9 Unspecified abdominal pain (principal); N20.0 Calculus of kidney; R35.0 Frequency of micturition

== ENCOUNTER → 2022-11-20 | Outpatient (CLI) | payer MEDICARE, MEDICAID ==
[2022-11-20 15:23] LABS: BASO # 0.1 10^3/uL (0.0-0.2); BASO % 0.7 % (0.0-1.0); EOS # 0.2 10^3/uL (0.0-0.5); EOS % 1.8 % (0.0-3.0); HEMATOCRIT 44.4 % (36.0-47.0); HEMOGLOBIN 14.1 g/dl (12.0-15.5); LYMPH # 2.3 10^3/uL (1.5-5.0); LYMPH % 24.1 % (24.0-44.0); MEAN CORPUSCULAR HEMOGLOBIN 28.6 pg (27.0-33.0); MEAN CORPUSCULAR HGB CONC 31.8 g/dl (32.0-36.5); MEAN CORPUSCULAR VOLUME 90.1 fl (80.0-96.0); MONO # 0.6 10^3/uL (0.0-0.8); MONO % 5.9 % (2.0-8.0); NEUTROPHILS # 6.4 10^3/uL (1.5-8.5); PLATELET COUNT, AUTOMATED 294 10^3/uL (150-450); RED BLOOD COUNT 4.93 10^6/uL (4.00-5.40); WHITE BLOOD COUNT 9.6 10^3/uL (4.0-10.0)
[2022-11-20 15:35] LABS: INR 1.08; PROTHROMBIN TIME 14.2 SECONDS (12.5-14.5)
[2022-11-20 15:47] LABS: HEMOGLOBIN A1c 5.4 % (4.0-6.0)
[2022-11-20 15:51] LABS: ALBUMIN 3.3 G/DL (3.2-5.2); ALKALINE PHOSPHATASE 78 U/L (46-116); ALT/SGPT 17 U/L (7.0-40); AST/SGOT 15 U/L (<34); BILIRUBIN,TOTAL 0.4 MG/DL (0.3-1.2); BLOOD UREA NITROGEN 19 MG/DL (9-23); CALCIUM LEVEL 9.3 MG/DL (8.3-10.6); CARBON DIOXIDE LEVEL 31 MMOL/L (20-31); CHLORIDE LEVEL 102 MMOL/L (98-107); CREATININE FOR GFR 0.64 MG/DL (0.55-1.30); GLOMERULAR FILTRATION RATE > 60.0 (>39); GLUCOSE, FASTING 95 MG/DL (74-106); POTASSIUM SERUM 4.4 MMOL/L (3.5-5.1); SODIUM LEVEL 140 MMOL/L (136-145); TOTAL PROTEIN 6.5 G/DL (5.7-8.2)
== END ==
LOC: M PLALAB 12:09
PROVIDERS: ATTEND Orthopaedic Surgery
DX: M19.012 Primary osteoarthritis, left shoulder (principal)

== ENCOUNTER → 2023-01-18 | Outpatient (CLI) | payer MEDICARE, MEDICAID ==
[~2023-01-18] MED LIST changes: +MONT-5 PO; -SING10TA32 PO
== END ==
LOC: M RAD 08:53
PROVIDERS: ATTEND Orthopaedic Surgery
DX: Z01.818 Encounter for other preprocedural examination (principal)

== ENCOUNTER → 2023-04-12 | Outpatient (CLI) | payer MEDICARE, MEDICAID | LOC: M RAD 14:34 | PROVIDERS: ATTEND Student in an Organized Health Care Education/Training Program | DX: R60.0 Localized edema (principal) ==

== ENCOUNTER → 2023-04-16 | Outpatient (CLI) | payer MEDICARE, MEDICAID ==
[2023-04-16 13:57] LABS: BASO # 0.1 10^3/uL (0.0-0.2); BASO % 0.7 % (0.0-1.0); EOS # 0.2 10^3/uL (0.0-0.5); EOS % 2.1 % (0.0-3.0); HEMATOCRIT 45.1 % (36.0-47.0); HEMOGLOBIN 14.5 g/dl (12.0-15.5); LYMPH # 2.4 10^3/uL (1.5-5.0); MEAN CORPUSCULAR HEMOGLOBIN 29.2 pg (27.0-33.0); MEAN CORPUSCULAR HGB CONC 32.2 g/dl (32.0-36.5); MEAN CORPUSCULAR VOLUME 90.7 fl (80.0-96.0); MONO # 0.6 10^3/uL (0.0-0.8); MONO % 6.4 % (2.0-8.0); NEUTROPHILS # 5.6 10^3/uL (1.5-8.5); NEUTROPHILS % 63.1 % (36.0-66.0); PLATELET COUNT, AUTOMATED 207 10^3/uL (150-450); RED BLOOD COUNT 4.97 10^6/uL (4.00-5.40); WHITE BLOOD COUNT 8.9 10^3/uL (4.0-10.0)
[2023-04-16 14:26] LABS: ERYTHROCYTE SEDIMENTATION RATE 36 mm/hr (0-30)
== END ==
LOC: M PLALAB 11:51
PROVIDERS: ATTEND Physician Assistant
DX: Z96.612 Presence of left artificial shoulder joint (principal); Z47.1 Aftercare following joint replacement surgery

== ENCOUNTER → 2023-04-16 | Outpatient (CLI) | payer MEDICARE, MEDICAID ==
[2023-04-16 13:57] LABS: BASO # 0.1 10^3/uL (0.0-0.2); BASO % 0.6 % (0.0-1.0); EOS # 0.2 10^3/uL (0.0-0.5); EOS % 2.1 % (0.0-3.0); HEMATOCRIT 44.9 % (36.0-47.0); HEMOGLOBIN 14.5 g/dl (12.0-15.5); LYMPH # 2.6 10^3/uL (1.5-5.0); MEAN CORPUSCULAR HEMOGLOBIN 29.3 pg (27.0-33.0); MEAN CORPUSCULAR HGB CONC 32.3 g/dl (32.0-36.5); MEAN CORPUSCULAR VOLUME 90.7 fl (80.0-96.0); MONO # 0.6 10^3/uL (0.0-0.8); MONO % 6.2 % (2.0-8.0); NEUTROPHILS # 5.8 10^3/uL (1.5-8.5); NEUTROPHILS % 62.9 % (36.0-66.0); PLATELET COUNT, AUTOMATED 196 10^3/uL (150-450); RED BLOOD COUNT 4.95 10^6/uL (4.00-5.40); WHITE BLOOD COUNT 9.2 10^3/uL (4.0-10.0)
[2023-04-16 14:23] LABS: HEMOGLOBIN A1c 5.3 % (4.0-6.0)
[2023-04-16 14:26] LABS: ERYTHROCYTE SEDIMENTATION RATE 41 mm/hr (0-30)
[2023-04-16 14:30] LABS: C REACTIVE PROTEIN QUANTITATIV < 0.40 MG/DL (<1.0)
[2023-04-16 14:31] LABS: ALBUMIN 3.6 G/DL (3.2-5.2); ALKALINE PHOSPHATASE 124 U/L (46-116); ALT/SGPT 28 U/L (7.0-40); AST/SGOT 13 U/L (<34); BILIRUBIN,TOTAL 0.5 MG/DL (0.3-1.2); BLOOD UREA NITROGEN 18 MG/DL (9-23); CALCIUM LEVEL 9.7 MG/DL (8.3-10.6); CARBON DIOXIDE LEVEL 31 MMOL/L (20-31); CHLORIDE LEVEL 102 MMOL/L (98-107); CHOLESTEROL LEVEL 216 MG/DL (<200); CHOLESTEROL RISK RATIO 4.89 (<5); CREATININE FOR GFR 0.65 MG/DL (0.55-1.30); GLOMERULAR FILTRATION RATE > 60.0 (>39); GLUCOSE, FASTING 80 MG/DL (74-106); HDL CHOLESTEROL 44.1 MG/DL (>40); LDL CHOLESTEROL 128.1 MG/DL (<100); NON-HDL-C 171.9 MG/DL; POTASSIUM SERUM 4.4 MMOL/L (3.5-5.1); SODIUM LEVEL 137 MMOL/L (136-145); TOTAL PROTEIN 6.7 G/DL (5.7-8.2); TRIGLYCERIDES LEVEL 219 MG/DL (<150)
[2023-04-16 14:33] LABS: FREE T4 1.08 NG/DL (0.89-1.76); THYROID STIMULATING HORMONE 2.084 uIU/ML (0.55-4.78); TOTAL 25(OH) VITAMIN D 24.4 NG/ML (20.0-100.0)
== END ==
LOC: M PLALAB 11:54
PROVIDERS: ATTEND Student in an Organized Health Care Education/Training Program
DX: I10 Essential (primary) hypertension (principal); Z47.1 Aftercare following joint replacement surgery; Z96.612 Presence of left artificial shoulder joint; Z79.899 Other long term (current) drug therapy

== ENCOUNTER → 2023-05-03 | Outpatient (CLI) | payer MEDICARE, MEDICAID ==
[~2023-05-03] MED LIST changes: -K-TA10TA2 PO; +POTA-165 PO
== END ==
LOC: M PLALAB 13:05
PROVIDERS: ATTEND Student in an Organized Health Care Education/Training Program
DX: Z86.39 Personal history of other endocrine, nutritional and metabolic disease (principal)

== ENCOUNTER → 2023-06-24 | Outpatient (CLI) | payer MEDICAID, MEDICARE, OTHER ==
[~2023-06-24] MED LIST changes: +ALBU8.5H; +FAMO20TA5 PO; +LOSA50TA28 PO; +PREG150C PO; +PRIM50TA6 PO; -ROPI0.5T3; +ROPI0.5T33; -ROPI1TAB3 PO; +ROPI1TAB73 PO; +SEMA0.257
== END ==
LOC: M RAD 16:00
PROVIDERS: ATTEND Family Medicine
DX: F17.210 Nicotine dependence, cigarettes, uncomplicated (principal)

== ENCOUNTER → 2023-07-30 | Outpatient (CLI) | payer MEDICARE, MEDICAID ==
[~2023-07-30] MED LIST changes: +EZET10TA58 PO; -PREG150C PO; +PREG150C2 PO; -ZETI10TA16 PO
== END ==
LOC: M PLAIMG 14:25
PROVIDERS: ATTEND Student in an Organized Health Care Education/Training Program
DX: M25.422 Effusion, left elbow (principal); S42.302A Unspecified fracture of shaft of humerus, left arm, initial encounter for closed fracture; W19.XXXA Unspecified fall, initial encounter; Y92.481 Parking lot as the place of occurrence of the external cause; Y93.9 Activity, unspecified; Y99.9 Unspecified external cause status

== ENCOUNTER → 2023-09-16 | Outpatient (CLI) | payer MEDICAID, MEDICARE ==
[~2023-09-16] MED LIST changes: -OXYB5TAB10 PO; +OXYB5TAB11 PO
== END ==
LOC: M PLALAB 14:07
PROVIDERS: ATTEND Student in an Organized Health Care Education/Training Program
DX: M25.362 Other instability, left knee (principal)

== ENCOUNTER → 2023-09-25 | Outpatient (CLI) | payer MEDICARE, MEDICAID | LOC: M WHC 13:02 | PROVIDERS: ATTEND Family Medicine | DX: Z12.31 Encounter for screening mammogram for malignant neoplasm of breast (principal) ==

== ENCOUNTER → 2023-11-26 | Outpatient (CLI) | payer MEDICARE, MEDICAID ==
[2023-11-26 13:52] LABS: PLATELET COUNT, AUTOMATED 190 10^3/uL (150-450)
[2023-11-26 14:17] LABS: COLLAGEN EPINEPHRINE 267 SECONDS (74-162)
[2023-11-26 14:19] LABS: INR 1.07; PROTHROMBIN TIME 13.6 SECONDS (12.5-14.5)
[2023-11-26 14:49] LABS: COLLAGEN ADP 114 SECONDS (56-103)
== END ==
LOC: M LAB 13:23
PROVIDERS: ATTEND Physician Assistant
DX: Z01.818 Encounter for other preprocedural examination (principal)

== ENCOUNTER → 2023-12-02 | Outpatient (CLI) | payer MEDICARE, MEDICAID ==
[2023-12-02 10:27] LABS: PLATELET COUNT, AUTOMATED 178 10^3/uL (150-450)
[2023-12-02 10:39] LABS: INR 1.06; PROTHROMBIN TIME 13.5 SECONDS (12.5-14.5)
[2023-12-02 10:40] LABS: PARTIAL THROMBOPLASTIN TIME 27.9 SECONDS (24.8-34.2)
[2023-12-02 10:46] LABS: COLLAGEN EPINEPHRINE 152 SECONDS (74-162)
== END ==
LOC: M LAB 09:57
PROVIDERS: ATTEND Physician Assistant
DX: Z01.812 Encounter for preprocedural laboratory examination (principal); Z79.01 Long term (current) use of anticoagulants

== ENCOUNTER → 2024-02-13 | Outpatient (CLI) | payer MEDICARE, MEDICAID ==
[~2024-02-13] MED LIST changes: -OXYB5TAB11 PO; +OXYB5TAB14 PO
== END ==
LOC: M RAD 13:51
PROVIDERS: ATTEND Internal Medicine Cardiovascular Disease
DX: R55 Syncope and collapse (principal)

== ENCOUNTER → 2024-03-10 | Outpatient (CLI) | payer MEDICARE, MEDICAID | LOC: M RAD 15:19 | PROVIDERS: ATTEND Physical Medicine & Rehabilitation | DX: M25.512 Pain in left shoulder (principal) ==

== ENCOUNTER → 2024-03-17 | Outpatient (CLI) | payer MEDICARE, MEDICAID ==
[~2024-03-17] MED LIST changes: -PROC25SU24 PO; +PROC25SU27 PO
[2024-03-17 14:04] LABS: ALKALINE PHOSPHATASE 107 U/L (46-116); ALT/SGPT 27 U/L (7.0-40); AST/SGOT 14 U/L (<34); BILIRUBIN,TOTAL 0.4 MG/DL (0.3-1.2); BLOOD UREA NITROGEN 21 MG/DL (9-23); CALCIUM LEVEL 9.3 MG/DL (8.3-10.6); CARBON DIOXIDE LEVEL 34 MMOL/L (20-31); CHLORIDE LEVEL 102 MMOL/L (98-107); CHOLESTEROL LEVEL 221 MG/DL (<200); CHOLESTEROL RISK RATIO 5.94 (<5); GLOMERULAR FILTRATION RATE > 60.0 (>39); GLUCOSE, FASTING 98 MG/DL (74-106); HDL CHOLESTEROL 37.2 MG/DL (>40); LDL CHOLESTEROL 112.6 MG/DL (<100); NON-HDL-C 183.8 MG/DL; POTASSIUM SERUM 4.3 MMOL/L (3.5-5.1); SODIUM LEVEL 140 MMOL/L (136-145); TOTAL PROTEIN 6.4 G/DL (5.7-8.2); TRIGLYCERIDES LEVEL 356 MG/DL (<150)
[2024-03-17 14:05] LABS: THYROID STIMULATING HORMONE 2.238 uIU/ML (0.55-4.78)
[2024-03-17 14:16] LABS: CREATININE, URINE 186.2 MG/DL; MAU/CREAT RATIO 5.9 MCG/MG (0.0-30.0)
[2024-03-17 14:26] LABS: HEMOGLOBIN A1c 5.4 % (4.0-6.0)
== END ==
LOC: M PLALAB 11:25
PROVIDERS: ATTEND Family Medicine
DX: E78.2 Mixed hyperlipidemia (principal)

== ENCOUNTER → 2024-03-19 | Outpatient (CLI) | payer MEDICAID, MEDICARE, OTHER | LOC: M RAD 14:25 | PROVIDERS: ATTEND Physical Medicine & Rehabilitation | DX: M54.12 Radiculopathy, cervical region (principal); M50.20 Other cervical disc displacement, unspecified cervical region; M48.02 Spinal stenosis, cervical region ==

== ENCOUNTER 2024-03-23 12:33 | Emergency (ER) | payer MEDICARE ==
[2024-03-23] MEDS ORDERED: LR 1,000 ML IV SCH (13:45)
[2024-03-23] MEDS: ACETAMINOPHEN TAB 650MG DOSE (2X325MG) PO ONE (14:30)
[2024-03-23] MEDS ORDERED: ISOVUE-370 76% 100ML VIAL As Ordered ONE (14:49)
[2024-03-23 14:54] LABS: BASO % 0.4 % (0.0-1.0); EOS # 0.2 10^3/uL (0.0-0.5); EOS % 2.3 % (0.0-3.0); HEMATOCRIT 42.8 % (36.0-47.0); HEMOGLOBIN 13.7 g/dl (12.0-15.5); LYMPH # 2.8 10^3/uL (1.5-5.0); LYMPH % 26.7 % (24.0-44.0); MEAN CORPUSCULAR HEMOGLOBIN 29.9 pg (27.0-33.0); MEAN CORPUSCULAR VOLUME 93.4 fl (80.0-96.0); MONO # 0.9 10^3/uL (0.0-0.8); MONO % 9.1 % (2.0-8.0); NEUTROPHILS # 6.3 10^3/uL (1.5-8.5); PLATELET COUNT, AUTOMATED 187 10^3/uL (150-450); RED BLOOD COUNT 4.58 10^6/uL (4.00-5.40); WHITE BLOOD COUNT 10.4 10^3/uL (4.0-10.0)
[2024-03-23 15:10] LABS: INR 1.09; PARTIAL THROMBOPLASTIN TIME 27.7 SECONDS (24.8-34.2); PROTHROMBIN TIME 13.8 SECONDS (12.5-14.5)
[2024-03-23 15:28] LABS: BLOOD UREA NITROGEN 18 MG/DL (9-23); CALCIUM LEVEL 9.2 MG/DL (8.3-10.6); CARBON DIOXIDE LEVEL 34 MMOL/L (20-31); CHLORIDE LEVEL 101 MMOL/L (98-107); CK-MB VALUE MASS 3.7 NG/ML (<3.6); CREATININE FOR GFR 0.68 MG/DL (0.55-1.30); GLOMERULAR FILTRATION RATE > 60.0 (>39); GLUCOSE, FASTING 97 MG/DL (74-106); POTASSIUM SERUM 4.4 MMOL/L (3.5-5.1); SODIUM LEVEL 139 MMOL/L (136-145)
[2024-03-23 15:29] LABS: CPK CREATINE PHOSPHOKINASE 593 U/L (34-145); MB/CK RELATIVE INDEX 0.62 (< OR =4)
[2024-03-23 16:49] VITALS: BP 124/69; TEMP 97.7; O2SAT 94
== END 2024-03-23 17:51 | disposition home or self-care (01) ==
LOC: M ED 12:33
DX: S50.02XA Contusion of left elbow, initial encounter (principal); S80.02XA Contusion of left knee, initial encounter; Y92.9 Unspecified place or not applicable; Y93.9 Activity, unspecified; Y99.9 Unspecified external cause status; W19.XXXA Unspecified fall, initial encounter; E11.9 Type 2 diabetes mellitus without complications; I10 Essential (primary) hypertension; E78.5 Hyperlipidemia, unspecified; F41.9 Anxiety disorder, unspecified; K21.9 Gastro-esophageal reflux disease without esophagitis; G43.909 Migraine, unspecified, not intractable, without status migrainosus; I45.10 Unspecified right bundle-branch block; Z87.891 Personal history of nicotine dependence; Z88.8 Allergy status to other drugs, medicaments and biological substances; Z91.030 Bee allergy status; Z88.0 Allergy status to penicillin; Z79.51 Long term (current) use of inhaled steroids; Z79.1 Long term (current) use of non-steroidal anti-inflammatories (NSAID); Z79.899 Other long term (current) drug therapy
CPT/HCPCS: 36415; 70450; 71260; 72125; 72128; 72131; 73030; 73060; 73080; 73090; 73110; 73130; 73521; 73552; 73564; 73590; 73610; 73630; 74177; 80047; 80048; 82550; 82553; 84484; 85025; 85610; 85730; 93005; 93041; 94760; 99284; Q9967

== ENCOUNTER → 2024-05-19 | Outpatient (REF) | payer MEDICARE, MEDICAID | LOC: M SFHCPLAZ 17:01 | PROVIDERS: ATTEND Student in an Organized Health Care Education/Training Program | DX: R30.9 Painful micturition, unspecified (principal) ==

== ENCOUNTER → 2024-06-24 | Outpatient (REF) | payer MEDICARE, MEDICAID | LOC: M SFHCPLAZ 12:58 | PROVIDERS: ATTEND Physician Assistant Medical | DX: R30.0 Dysuria (principal) ==

== ENCOUNTER → 2024-08-11 | Outpatient (CLI) | payer MEDICARE ==
[~2024-08-11] MED LIST changes: +GABA-1490 PO; -GABA600T4 PO
[2024-08-11 18:23] LABS: PLATELET COUNT, AUTOMATED 214 10^3/uL (150-450)
[2024-08-11 18:33] LABS: INR 1.05; PARTIAL THROMBOPLASTIN TIME 29.8 SECONDS (24.8-34.2); PROTHROMBIN TIME 13.4 SECONDS (12.5-14.5)
== END ==
LOC: M PLALAB 14:46
PROVIDERS: ATTEND Physician Assistant
DX: Z01.818 Encounter for other preprocedural examination (principal); Z79.01 Long term (current) use of anticoagulants

== ENCOUNTER → 2024-09-30 | Outpatient (CLI) | payer MEDICARE, MEDICAID ==
[~2024-09-30] MED LIST changes: +GABA-1172 PO; -GABA-282 PO; +NYST1POW3 TOP; -NYST1POW9 TOP
[2024-09-30 16:06] LABS: BLOOD UREA NITROGEN 21 MG/DL (9-23); CALCIUM LEVEL 10.2 MG/DL (8.3-10.6); CARBON DIOXIDE LEVEL 34 MMOL/L (20-31); CHLORIDE LEVEL 101 MMOL/L (98-107); CHOLESTEROL LEVEL 239 MG/DL (<200); CHOLESTEROL RISK RATIO 6.15 (<5); GLOMERULAR FILTRATION RATE > 60.0 (>39); GLUCOSE, FASTING 91 MG/DL (74-106); HDL CHOLESTEROL 38.8 MG/DL (>40); LDL CHOLESTEROL 154.6 MG/DL (<100); NON-HDL-C 200.2 MG/DL; POTASSIUM SERUM 4.8 MMOL/L (3.5-5.1); SODIUM LEVEL 141 MMOL/L (136-145); TRIGLYCERIDES LEVEL 228 MG/DL (<150)
[2024-09-30 16:07] LABS: THYROID STIMULATING HORMONE 2.232 uIU/ML (0.55-4.78)
[2024-09-30 16:16] LABS: HEMOGLOBIN A1c 5.5 % (4.0-6.0)
== END ==
LOC: M PLALAB 12:16
PROVIDERS: ATTEND Family Medicine
DX: E11.9 Type 2 diabetes mellitus without complications (principal)

== ENCOUNTER → 2025-03-26 | Outpatient (CLI) | payer MEDICARE, MEDICAID ==
[~2025-03-26] MED LIST changes: -ADV250INH INH; +ADVA1AER9 INH; +LIDO1ADH93 TD; -LIDO5DIS41 TD
[2025-03-26 16:02] LABS: ALBUMIN 3.5 G/DL (3.2-5.2); BILIRUBIN,TOTAL 0.4 MG/DL (0.3-1.2); CALCIUM LEVEL 9.4 MG/DL (8.3-10.6); CREATININE FOR GFR 0.7 MG/DL (0.55-1.30); GLOMERULAR FILTRATION RATE 89.6 (>39); POTASSIUM SERUM 4.1 MMOL/L (3.5-5.1); TOTAL PROTEIN 6.7 G/DL (5.7-8.2)
== END ==
LOC: M PLALAB 12:29
PROVIDERS: ATTEND Psychiatry & Neurology Neurology
DX: G45.9 Transient cerebral ischemic attack, unspecified (principal)

== ENCOUNTER → 2025-03-26 | Outpatient (CLI) | payer MEDICARE, MEDICAID ==
[2025-03-26 15:38] LABS: CHOLESTEROL RISK RATIO 5.36 (<5); HDL CHOLESTEROL 42.7 MG/DL (>40); LDL CHOLESTEROL 133.9 MG/DL (<100); NON-HDL-C 186.3 MG/DL
[2025-03-26 15:42] LABS: THYROID STIMULATING HORMONE 1.851 uIU/ML (0.55-4.78)
[2025-03-26 15:47] LABS: HEMOGLOBIN A1c 5.6 % (4.0-6.0)
== END ==
LOC: M PLALAB 12:37
PROVIDERS: ATTEND Student in an Organized Health Care Education/Training Program
DX: E11.9 Type 2 diabetes mellitus without complications (principal)

== ENCOUNTER → 2025-04-01 | Outpatient (CLI) | payer MEDICARE, MEDICAID ==
[~2025-04-01] MED LIST changes: +ISOVUE-370 76% 100ML VIAL As Ordered ONE
== END ==
LOC: M RAD 14:38
PROVIDERS: ATTEND Psychiatry & Neurology Neurology
DX: R55 Syncope and collapse (principal); R42 Dizziness and giddiness; I65.23 Occlusion and stenosis of bilateral carotid arteries
CPT/HCPCS: 70498; Q9967

== ENCOUNTER → 2025-07-15 | Outpatient (CLI) | payer MEDICARE, MEDICAID ==
[~2025-07-15] MED LIST changes: -ISOVUE-370 76% 100ML VIAL As Ordered ONE
== END ==
LOC: M PLALAB 13:24
DX: M79.642 Pain in left hand (principal)